=== PATIENT | female | born 1955 | race Two or more races ===

== ENCOUNTER 2022-05-03 08:36 | Outpatient (REF) | payer MEDICARE, MEDICAID, SELFPAY ==
[2022-05-03 08:58] LABS: MANUAL DIFF FLAG NO
[2022-05-03 09:07] LABS: Basophils Absolute Auto 0.1 X10*3/uL (0.0-0.2); Basophils Percent Auto 0.7 % (0-2); Eosinophils Absolute Auto 0.2 X10*3/uL (0.0-0.4); Eosinophils Percent Auto 1.6 % (0-4); Hemoglobin 14.8 g/dl (12.0-16.0); Imm Gran Abs Auto 0.03 X10*3/uL (0.00-0.03); Imm Gran Pct Auto 0.3 % (0.0-0.4); Lymphocytes Absolute Auto 4.7 X10*3/uL (1.2-4.9); Lymphocytes Percent Auto 51.5 % (20-40); Mean Corpuscular HGB Conc 33.6 g/dl (31.0-35.0); Mean Corpuscular Hemoglobin 28.8 pg (27.0-33.0); Mean Corpuscular Volume 85.8 fL (80.0-98.0); Mean Platelet Volume 10.7 fL (9.4-12.3); Monocytes Absolute Auto 0.6 X10*3/uL (0.1-1.2); Monocytes Percent Auto 6.9 % (2-11); Neutrophils Absolute Auto 3.6 x10*3/uL (2.0-8.3); Platelet Count 308 X10*3/uL (160-400); Red Blood Count 5.13 X10*6/uL (4.20-5.50); Red Cell Distribution Width 13.8 % (11.0-16.0); White Blood Count 9.2 X10*3/uL (4.8-10.8)
[2022-05-03 09:18] LABS: Estimated Average Glucose 131 mg/dL; Hemoglobin A1c % 6.2 %
[2022-05-03 09:35] LABS: Alanine Aminotransferase 27 U/L (0-31); Albumin Level 4.3 g/dL (3.5-5.0); Alkaline Phosphatase 84 U/L (39-117); Anion Gap 16 (12-20); Aspartate Amino Transferase 18 U/L (5-31); Bilirubin Total 0.4 mg/dL (0.0-1.0); Blood Urea Nitrogen 26 mg/dL (9-16); Calcium 9.3 mg/dL (8.4-10.2); Carbon Dioxide 26 mmol/L (22-29); Chloride 102 mmol/L (96-108); Cholesterol 229 mg/dL; Estimated Glomerular Filt Rate > 60; Glucose Random 127 mg/dL (60-115); HDL Cholesterol 64 mg/dL; LDL Cholesterol Calculated 143 mg/dl; Potassium 3.3 mmol/L (3.3-5.1); Sodium 141 mmol/L (135-145); Total Protein 8.1 g/dL (6.5-8.0); Triglycerides 112 mg/dL
[2022-05-03 09:49] LABS: Appearance Urine Clear; Color Urine Dark Yellow; Glucose Urine UA Negative (Negative); Leukocyte Esterase Urine Negative (Negative); Nitrite Urine Negative (Negative); PH 5.5 (5.0-9.0); Specific Gravity - Urine 1.025 (1.005-1.025); Urine Blood Negative (Negative); Urine Ketones Trace mg/dL (Negative); Urine Protein Negative (Neg-Trace)
[2022-05-03 09:58] LABS: Thyroid Stimulating Hormone 5.35 uIU/mL (0.32-4.0)
[2022-05-03 10:08] LABS: Vitamin B12 381 pg/mL (200-900)
[2022-05-03 10:49] LABS: Creatinine Urine 265.77 mg/dL; Microalbum/Creatinine Ratio Ur 5.6 ug/mg cr
== END 2022-05-03 08:37 | disposition home or self-care (01) ==
LOC: HO.LAB 08:36
PROVIDERS: Visit Provider Physician Assistant Medical
DX: D51.9 Vitamin B12 deficiency anemia, unspecified (principal); I10 Essential (primary) hypertension; M17.0 Bilateral primary osteoarthritis of knee; M51.36 Other intervertebral disc degeneration, lumbar region; M54.17 Radiculopathy, lumbosacral region; M54.50 Low back pain, unspecified; R10.84 Generalized abdominal pain; R73.01 Impaired fasting glucose
CPT/HCPCS: 36415; 80053; 80061; 81003; 82043; 82607; 83036; 84443; 85025

== ENCOUNTER 2022-05-09 08:20 | Outpatient (REF) | payer MEDICARE, MEDICAID, SELFPAY ==
--- NOTE | ~2022-05-09 | CT_ITS ---
EXAMINATION: CT HEAD WITHOUT CONTRAST CLINICAL INFORMATION: Occipital neuralgia, headache COMPARISON: None TECHNIQUE: Contiguous axial imaging was performed from the skull base to vertex without intravenous administration of contrast. This CT examination was performed using dose optimization techniques as appropriate, variously including the following: *Automated exposure control *Adjustment of mA and/or kV according to patient size (this includes techniques or standardized protocols for targeted exams where dose is matched to indication/reason for exam; i.e. extremities or head) *Use of iterative reconstruction technique DLP: 660 mGy-cm FINDINGS: No intracranial hemorrhage is identified. No abnormal extra-axial fluid collection. No significant mass effect or midline structure shift is seen. The yanez-white matter interface is maintained. The bony structures unremarkable without evidence of sinusitis or mastoiditis. CT/CT head/brain wo IV con IMPRESSION: No acute intracranial pathology.
== END 2022-05-09 08:21 | disposition home or self-care (01) ==
LOC: HO.CT 08:20
PROVIDERS: Visit Provider Physician Assistant Medical
DX: H81.21 Vestibular neuronitis, right ear (principal); M54.81 Occipital neuralgia; R51.0 Headache with orthostatic component, not elsewhere classified; R11.10 Vomiting, unspecified
CPT/HCPCS: 70450

== ENCOUNTER 2022-10-18 08:24 | Outpatient (REF) | payer MEDICARE, SELFPAY ==
[2022-10-18 08:41] LABS: MANUAL DIFF FLAG NO
[2022-10-18 09:02] LABS: Basophils Percent Auto 0.8 % (0-2); Eosinophils Absolute Auto 0.1 X10*3/uL (0.0-0.4); Eosinophils Percent Auto 3.3 % (0-4); Hematocrit 39.2 % (37.0-47.0); Hemoglobin 12.9 g/dl (12.0-16.0); Imm Gran Abs Auto 0.01 X10*3/uL (0.00-0.03); Imm Gran Pct Auto 0.3 % (0.0-0.4); Lymphocytes Absolute Auto 1.5 X10*3/uL (1.2-4.9); Lymphocytes Percent Auto 37.8 % (20-40); Mean Corpuscular HGB Conc 32.9 g/dl (31.0-35.0); Mean Corpuscular Hemoglobin 28.3 pg (27.0-33.0); Mean Platelet Volume 11.3 fL (9.4-12.3); Monocytes Absolute Auto 0.3 X10*3/uL (0.1-1.2); Monocytes Percent Auto 7.1 % (2-11); Neutrophils Percent Auto 50.7 % (45-73); Platelet Count 250 X10*3/uL (160-400); Red Blood Count 4.56 X10*6/uL (4.20-5.50); Red Cell Distribution Width 14.2 % (11.0-16.0); White Blood Count 3.9 X10*3/uL (4.8-10.8)
[2022-10-18 09:11] LABS: Appearance Urine Clear; Color Urine Yellow; Glucose Urine UA Negative (Negative); Leukocyte Esterase Urine Trace (Negative); Nitrite Urine Negative (Negative); PH 6.5 (5.0-9.0); Specific Gravity - Urine 1.025 (1.005-1.025); UMIC TRIGGER UA YES; Urine Blood Negative (Negative); Urine Ketones Negative (Negative); Urine Protein Negative (Neg-Trace)
[2022-10-18 09:16] LABS: Bacteria Urine Trace (None Seen); Hyaline Casts Urine 0-2 /LPF (0-2); RBC Urine 0-2 /HPF (0-2); Squamous Epithelial Cell Urine 0-2 /HPF (0-2); WBC Urine 0-5 /HPF (0-5)
[2022-10-18 09:24] LABS: Estimated Average Glucose 131 mg/dL; Hemoglobin A1c % 6.2 %
[2022-10-18 10:00] LABS: Creatinine Urine 214.21 mg/dL
[2022-10-18 10:05] LABS: Alanine Aminotransferase 19 U/L (0-31); Albumin Level 4.1 g/dL (3.5-5.0); Alkaline Phosphatase 85 U/L (39-117); Anion Gap 11 (12-20); Aspartate Amino Transferase 21 U/L (5-31); Bilirubin Total 0.7 mg/dL (0.0-1.0); Blood Urea Nitrogen 16 mg/dL (9-16); Calcium 9.1 mg/dL (8.4-10.2); Carbon Dioxide 26 mmol/L (22-29); Chloride 109 mmol/L (96-108); Cholesterol 213 mg/dL; Estimated Glomerular Filt Rate > 60; Glucose Fasting 112 mg/dL (60-99); HDL Cholesterol 51 mg/dL; LDL Cholesterol Calculated 142 mg/dl; Sodium 142 mmol/L (135-145); Total Protein 7.3 g/dL (6.5-8.0); Triglycerides 100 mg/dL
[2022-10-18 10:22] LABS: Thyroid Stimulating Hormone 3.39 uIU/mL (0.32-4.0); Vitamin D 25-OH Total 26.8 ng/mL (>30)
== END 2022-10-18 08:25 | disposition home or self-care (01) ==
LOC: HO.LAB 08:24
PROVIDERS: PCP Internal Medicine; Visit Provider Internal Medicine
DX: Z00.00 Encounter for general adult medical examination without abnormal findings (principal); R73.03 Prediabetes; E55.9 Vitamin D deficiency, unspecified
CPT/HCPCS: 36415; 80053; 80061; 81001; 81003; 82043; 82306; 83036; 84443; 85025

== ENCOUNTER 2022-12-04 10:26 | Outpatient (REF) | payer MEDICARE, SELFPAY ==
[2022-12-04 11:57] LABS: Estimated Average Glucose 131 mg/dL; Hemoglobin A1c % 6.2 %
[2022-12-04 12:15] LABS: Alanine Aminotransferase 18 U/L (0-31); Albumin Level 4.2 g/dL (3.5-5.0); Alkaline Phosphatase 90 U/L (39-117); Anion Gap 12 (12-20); Aspartate Amino Transferase 21 U/L (5-31); Bilirubin Total 0.6 mg/dL (0.0-1.0); Blood Urea Nitrogen 22 mg/dL (9-16); Calcium 9.2 mg/dL (8.4-10.2); Carbon Dioxide 28 mmol/L (22-29); Chloride 108 mmol/L (96-108); Cholesterol 215 mg/dL; Estimated Glomerular Filt Rate > 60; Glucose Fasting 115 mg/dL (60-99); HDL Cholesterol 59 mg/dL; LDL Cholesterol Calculated 142 mg/dl; Potassium 4.5 mmol/L (3.3-5.1); Sodium 143 mmol/L (135-145); Total Protein 7.5 g/dL (6.5-8.0); Triglycerides 71 mg/dL
== END 2022-12-04 10:27 | disposition home or self-care (01) ==
LOC: HO.LAB 10:26
PROVIDERS: PCP Internal Medicine; Visit Provider Internal Medicine
DX: E78.00 Pure hypercholesterolemia, unspecified (principal); E55.9 Vitamin D deficiency, unspecified; I10 Essential (primary) hypertension; R73.03 Prediabetes
CPT/HCPCS: 36415; 80053; 80061; 83036

== ENCOUNTER 2022-12-14 08:51 | Outpatient (REF) | payer MEDICARE, SELFPAY ==
--- NOTE | ~2022-12-14 | MM_ITS ---
EXAMINATION: BONE DENSITOMETRY CLINICAL INDICATION: Asymptomatic menopausal state. COMPARISON: This is the patient's baseline examination. TECHNIQUE: Using a [employer] DXA System (software version: 13.1) manufactured by [employer], dual-energy x-ray absorptiometry was performed of the lumbar spine and left hip. The images are of good technical quality. Summary results are attached. FINDINGS: AP SPINE L1-L4: BMD 1.389 g/cm2, Z-score 2.7, T-score 1.7, normal. LEFT FEMUR, NECK: BMD 0.932 g/cm2, Z-score 0.3, T-score -0.8, normal. LEFT FEMUR, TOTAL: BMD 1.030 g/cm2, Z-score 1.0, T-score 0.2, normal. IDENTIFIED RISK FACTORS: Height loss, history of fracture (adult). Early menopause, secondary osteoporosis, thiazide. HISTORY OF FRACTURE: Other. MEDICATIONS: Vitamin D. MM/XR DEXA axial skeleton IMPRESSION: 1. DIAGNOSIS: Normal bone density based on the lowest T-score value of -0.8 in the femoral neck applying World Health Organization criteria. 2. 10-YEAR FRACTURE RISK PREDICTION, FRAX: According to the guidelines, FRAX calculation should only be performed on patients in the osteopenia bone density category. Therefore, FRAX was not performed on this patient. 3. Treatment Recommendations: NOF guidelines recommend consideration for treatment in postmenopausal women and men age 50 and older presenting with the following: -A hip or vertebral (clinical or morphometric) fracture. -T-score less than or equal to -2.5 at the femoral neck or spine after appropriate evaluation to exclude secondary causes. -Low bone mass at the hip or spine and a 10-year fracture probability by FRAX of greater than or equal to 3% for hip fracture or greater than or equal to 20% for major osteoporotic fracture based on the [place] adapted WHO algorithm. 4. Other Recommendations: All treatment decisions require clinical judgment and consideration of individual patient factors, including patient preferences, comorbidities, previous drug use, risk factors not captured in the FRAX model (e.g. frailty, falls, vitamin D deficiency, increased bone turnover, interval significant decline in bone density) and possible under or overestimation of fracture risk by FRAX. FUTURE SCAN RECOMMENDATION: People with diagnosed cases of osteoporosis or at high risk for fracture should have regular bone mineral density tests. For patients eligible for Medicare, routine testing is allowed once every 2 years. The testing frequency can be increased to one year for patients who have rapidly progressing disease, those who are receiving or discontinuing medical therapy to restore bone mass, or have additional risk factors.
--- NOTE | ~2022-12-14 | MM_ITS ---
EXAMINATION: MM SCREENING DIGITAL BREAST TOMOSYNTHESIS, BILATERAL CLINICAL INFORMATION: Screening. Asymptomatic. The lifetime risk of breast cancer based on the Tyrer-Cuzick Model is 6.0%. COMPARISON: Mammography: August 30, 2012 and studies dating back to October 03, 2007 TECHNIQUE: Digital breast tomosynthesis is performed in both the craniocaudal and mediolateral oblique views along with computer-aided detection (CAD). Synthesized 2D images are generated from the tomosynthesis. FINDINGS: There are scattered areas of fibroglandular density (ACR BI-RADS breast composition Category b). There are no significant masses, abnormal calcifications, or other abnormalities. MM/MM tomosynthesis screening BI IMPRESSION: No significant changes from prior exam. ASSESSMENT: BI-RADS 1: Negative RECOMMENDATION: Routine annual mammography screening. This patient's information was entered into a reminder system with a target due date for their next mammogram.
== END 2022-12-14 08:52 | disposition home or self-care (01) ==
LOC: HO.MAMMO 08:51
PROVIDERS: PCP Internal Medicine; Visit Provider Internal Medicine
DX: Z12.31 Encounter for screening mammogram for malignant neoplasm of breast (principal); Z13.820 Encounter for screening for osteoporosis; Z78.0 Asymptomatic menopausal state
CPT/HCPCS: 77063; 77067; 77080

== ENCOUNTER 2023-01-01 13:58 | Outpatient (REF) | payer MEDICARE, SELFPAY ==
[2023-01-01 15:38] LABS: C Reactive Protein 0.16 mg/dL (< or = 0.50)
[2023-01-01 15:55] LABS: Free T4 (Free Thyroxine) 0.82 ng/dL (0.71-1.85); Thyroid Stimulating Hormone 2.09 uIU/mL (0.32-4.0)
== END 2023-01-01 13:59 | disposition home or self-care (01) ==
LOC: HO.LAB 13:58
PROVIDERS: PCP Internal Medicine; Visit Provider Internal Medicine
DX: R94.6 Abnormal results of thyroid function studies (principal)
CPT/HCPCS: 36415; 84439; 84443; 86140

== ENCOUNTER 2023-06-18 08:52 | Outpatient (REF) | payer MEDICARE, SELFPAY ==
[2023-06-18 09:23] LABS: MANUAL DIFF FLAG NO
[2023-06-18 09:39] LABS: Basophils Percent Auto 0.9 % (0-2); Eosinophils Absolute Auto 0.1 X10*3/uL (0.0-0.4); Eosinophils Percent Auto 2.2 % (0-4); Hematocrit 39.5 % (37.0-47.0); Hemoglobin 12.7 g/dl (12.0-16.0); Imm Gran Abs Auto 0.01 X10*3/uL (0.00-0.03); Imm Gran Pct Auto 0.2 % (0.0-0.4); Lymphocytes Absolute Auto 1.9 X10*3/uL (1.2-4.9); Lymphocytes Percent Auto 41.8 % (20-40); Mean Corpuscular HGB Conc 32.2 g/dl (31.0-35.0); Mean Corpuscular Hemoglobin 27.1 pg (27.0-33.0); Mean Corpuscular Volume 84.2 fL (80.0-98.0); Mean Platelet Volume 11.6 fL (9.4-12.3); Monocytes Absolute Auto 0.3 X10*3/uL (0.1-1.2); Monocytes Percent Auto 6.3 % (2-11); Neutrophils Absolute Auto 2.2 x10*3/uL (2.0-8.3); Neutrophils Percent Auto 48.6 % (45-73); Platelet Count 248 X10*3/uL (160-400); Red Blood Count 4.69 X10*6/uL (4.20-5.50); Red Cell Distribution Width 15.3 % (11.0-16.0); White Blood Count 4.6 X10*3/uL (4.8-10.8)
[2023-06-18 09:51] LABS: Estimated Average Glucose 126 mg/dL
[2023-06-18 10:20] LABS: Alanine Aminotransferase 20 U/L (0-31); Albumin Level 4.2 g/dL (3.5-5.0); Alkaline Phosphatase 89 U/L (39-117); Anion Gap 12 (12-20); Aspartate Amino Transferase 21 U/L (5-31); Bilirubin Total 0.4 mg/dL (0.0-1.0); Blood Urea Nitrogen 22 mg/dL (9-16); Calcium 9.4 mg/dL (8.4-10.2); Carbon Dioxide 26 mmol/L (22-29); Chloride 109 mmol/L (96-108); Cholesterol 227 mg/dL (<200); Estimated Glomerular Filt Rate > 60; Glucose Fasting 100 mg/dL (60-99); HDL Cholesterol 61 mg/dL (>40); LDL Cholesterol Calculated 146 mg/dL (<100); Potassium 3.9 mmol/L (3.3-5.1); Sodium 143 mmol/L (135-145); Total Protein 8.2 g/dL (6.5-8.0); Triglycerides 104 mg/dL (<150)
[2023-06-18 11:29] LABS: Creatinine Urine 144.73 mg/dL; Microalbum/Creatinine Ratio Ur 4.1 ug/mg cr (<30)
== END 2023-06-18 08:53 | disposition home or self-care (01) ==
LOC: HO.LAB 08:52
PROVIDERS: PCP Internal Medicine; Visit Provider Internal Medicine
DX: I10 Essential (primary) hypertension (principal); E78.00 Pure hypercholesterolemia, unspecified; R73.03 Prediabetes
CPT/HCPCS: 36415; 80053; 80061; 82043; 82570; 83036; 85025

== ENCOUNTER 2023-07-10 12:50 | Outpatient (REF) | payer MEDICARE, SELFPAY ==
--- NOTE | ~2023-07-10 | XR_ITS ---
EXAMINATION: XR LEFT KNEE XR RIGHT KNEE CLINICAL INFORMATION: Bilateral knee pain. COMPARISON: None TECHNIQUE: Left knee, 3 views Right knee, 3 views FINDINGS: Left knee: Small marginal osteophytes and subchondral cystic changes of the patellofemoral joint. There is mild narrowing of lateral patellofemoral joint space. Also, mild marginal osteophyte formation is noted at tibiofemoral compartments. No fracture, subluxation or joint effusion. Right knee: There is tricompartmental osteophyte formation and overall mild, nonuniform narrowing of joint spaces. No fracture or intra-articular osteochondral body. Small joint effusion is present. On the AP view, the observation of mild lateral tibial subluxation raises suspicion for laxity at the knee joint. XR/XR knee LT 3V IMPRESSION: * Left knee tricompartmental osteoarthritis. The joint degeneration is mild at tibiofemoral compartments and [id number] at the patellofemoral compartment. * Right knee tricompartmental osteoarthritis is [id number] in degree and a small joint effusion is present.
--- NOTE | ~2023-07-10 | XR_ITS ---
EXAMINATION: XR FOOT, LEFT CLINICAL INFORMATION: Pain COMPARISON: None available. TECHNIQUE: 3 views of the left foot obtained without weightbearing. FINDINGS: Bones have normal alignment throughout the foot. Joint spaces are normal. No fractures, erosions or periostitis. No radiopaque foreign body. There are small calcaneal enthesophytes at sites of attachment of Achilles tendon and plantar aponeurosis. XR/XR foot LT min 3V IMPRESSION: * There are small enthesophytes of the calcaneus. * No acute osseous injury in the left foot.
--- NOTE | ~2023-07-10 | XR_ITS ---
EXAMINATION: XR LEFT KNEE XR RIGHT KNEE CLINICAL INFORMATION: Bilateral knee pain. COMPARISON: None TECHNIQUE: Left knee, 3 views Right knee, 3 views FINDINGS: Left knee: Small marginal osteophytes and subchondral cystic changes of the patellofemoral joint. There is mild narrowing of lateral patellofemoral joint space. Also, mild marginal osteophyte formation is noted at tibiofemoral compartments. No fracture, subluxation or joint effusion. Right knee: There is tricompartmental osteophyte formation and overall mild, nonuniform narrowing of joint spaces. No fracture or intra-articular osteochondral body. Small joint effusion is present. On the AP view, the observation of mild lateral tibial subluxation raises suspicion for laxity at the knee joint. XR/XR knee RT 3V IMPRESSION: * Left knee tricompartmental osteoarthritis. The joint degeneration is mild at tibiofemoral compartments and [id number] at the patellofemoral compartment. * Right knee tricompartmental osteoarthritis is [id number] in degree and a small joint effusion is present.
== END 2023-07-10 12:51 | disposition home or self-care (01) ==
LOC: HO.XRAY 12:50
PROVIDERS: PCP Internal Medicine; Visit Provider Internal Medicine
DX: M25.561 Pain in right knee (principal); M25.562 Pain in left knee; M79.672 Pain in left foot
CPT/HCPCS: 73562; 73630

== ENCOUNTER 2023-09-25 12:30 | Outpatient (AMB) | payer MEDICARE, SELFPAY ==
--- NOTE | 2023-09-25 12:41 | A.OFFVIS_ITS ---
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 Seen with her PCP who referred to Dr. Hawkins. Patient states she noticed cyst in May 2023, since then it has gone away. States her thumb hurt when with every moment. Denies locking, numbness, tingling or recent injury. 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 Her appointment was initially made to discuss a left thumb mass, which developed in 05/2023, but this has resolved at this time. She complains of pain with any movement or use of her thumb. She says her pain began once this mass disappeared . She says her pain is mostly on the back of her thumb. She says her pain worsens with prolonged gripping or holding objects, such as a phone. She denies any locking, catching, numbness, or tingling. She denies any falls or known injury. 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 Review of Systems Const All systems reviewed & are unremarkable except as noted in HPI and below Physical Exam Vital Signs: BMI result Body Mass Index 33.5 Const General: cooperative, healthy appearing and no acute distress Orientation/consciousness: patient oriented x3 HEENT Head: Yes normocephalic and Yes atraumatic Eyes EOM: EOMs intact bilaterally Resp Effort & Inspection: normal respiratory effort and able to speak in complete sentences Cardio Jugular venous distension: no JVD Skin General skin exam: turgor normal Rashes: no rashes Neuro General: patient oriented x3 Extrem Other: Evaluation of Left Upper Extremity: The patient is alert, oriented, and in no acute distress Neuro: Median, Ulnar, Radial nerves motor and sensory intact and sensation is normal to the tips of all digits Vascular: Cap refill brisk ROM: She can make a fist and extend all her digits No locking or catching Skin: No lacerations or abrasions. General: No Ecchymosis. No Erythema or evidence of infection. She demonstrates most of her pain to be over the dorsal aspect of the left 1st metacarpal. No pain with resisted left thumb extension, and the EPL and EPB tendons are palpable and nontender. No tenderness about the basal joint of the thumb or MCP joint of the thumb. The MCP joint collateral ligaments are intact and stable. Good active flexion and extension of the thumb with no locking or catching No tenderness over the A1 ling. No palpable cyst over the volar aspect of the thumb, though she reports a history of having a cyst on 2 different occasions over the volar distal aspect of the proximal phalanx of the thumb, that resolved on their own. No tenderness over the 1st dorsal compartment Negative Addi test Psych Appearance: grossly normal Affect: normal affect Attitude: cooperative Assessment & Plan Assessment & Plan (1) Mass of skin of left thumb: Code(s): R22.32 - Localized swelling, mass and lump, left upper limb (2) Pain of left thumb: Code(s): M79.645 - Pain in left finger(s) Plan Assessment & Plan: 1. Left thumb pain, intermittent Worse with prolonged holding of her phone or holding objects. Dorsum of 1st metacarpal Possible sprain/strain Onset: 06/2023 I educated her about this condition i discussed non-operative treatment options I recommend bracing & activity modification I discussed activity modification, she should limit or avoid any heavy or repetitive pinching, gripping, or other motions She was fitted for a left comfort cool brace to be worn with daily activity, this should be removed when at rest & at night She should work on gentle ROM exercises at home, out of her brace, to maintain her motion She can follow up prn 2. 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 No mass seen today If her symptoms return she can follow up to discuss treatment. Scribed for Guerline Hawkins MD by Trevor Cates, medical staff specialist, on 09/25/23 at 1:05 PM, EST. Coding Level of Care Code New Pt Level 3 (75291) Diagnoses Mass of skin of left thumb R22.32 Pain of left thumb M79.645
[2023-09-25 12:55] VITALS: BMI 33.5
== END 2023-09-25 13:12 | disposition home or self-care (01) ==
PROVIDERS: PCP Internal Medicine; Visit Provider Orthopaedic Surgery
DX: M79.645 Pain in left finger(s) (principal)
CPT/HCPCS: 99203

== ENCOUNTER → 2023-09-25 12:30 | Outpatient (BNVA) | payer MEDICARE, SELFPAY | PROVIDERS: PCP Internal Medicine; Visit Provider Orthopaedic Surgery | DX: R22.32 Localized swelling, mass and lump, left upper limb (principal); M79.645 Pain in left finger(s) | CPT/HCPCS: 99202 ==

== ENCOUNTER 2023-12-17 15:07 | Outpatient (REF) | payer MEDICARE, SELFPAY ==
--- NOTE | ~2023-12-17 | US_ITS ---
EXAMINATION: US VENOUS ULTRASOUND WITH DOPPLER LOWER EXTREMITY, LEFT CLINICAL INFORMATION: Left lower extremity pain COMPARISON: None available. TECHNIQUE: Ultrasound of the deep veins is performed from the hip to the calf with compression sonography and color and pulse Doppler assessment. Spectral analysis with color-flow imaging is performed. FINDINGS: There is normal venous compression and respiratory variation and augmented flow. The visualized common femoral vein, superficial femoral vein, profunda femoral vein, popliteal vein, and the trifurcation region shows no evidence of deep venous thrombosis. There is no significant popliteal fossa cyst. If the patient's symptoms persist, followup ultrasound in 5 days 7 days might be of value to exclude proximal propagation from a non-visualized calf vein. US/US venous duplex LE LT IMPRESSION: No DVT demonstrated in the left lower extremity.
== END 2023-12-17 15:08 | disposition home or self-care (01) ==
LOC: HO.US 15:07
PROVIDERS: PCP Internal Medicine; Visit Provider Internal Medicine
DX: M79.662 Pain in left lower leg (principal)
CPT/HCPCS: 93971

== ENCOUNTER 2023-12-24 09:49 | Outpatient (REF) | payer MEDICARE, SELFPAY ==
--- NOTE | ~2023-12-24 | MM_ITS ---
EXAMINATION: MM SCREENING DIGITAL BREAST TOMOSYNTHESIS, BILATERAL CLINICAL INFORMATION: Screening. Asymptomatic. COMPARISON: Mammography: This study is compared with prior exams dating back to 2022. TECHNIQUE: Digital breast tomosynthesis is performed in both the craniocaudal and mediolateral oblique views along with computer-aided detection (CAD). Synthesized 2D images are generated from the tomosynthesis. FINDINGS: There are scattered areas of fibroglandular density (ACR BI-RADS breast composition Category b). There are no significant masses, abnormal calcifications, or other abnormalities. MM/MM tomosynthesis screening BI IMPRESSION: No mammographic evidence of malignancy. ASSESSMENT: BI-RADS BI-RADS 1 - Negative RECOMMENDATION: Routine annual mammography screening. 1 year F/U This examination should not preclude the clinical evaluation of a suspicious palpable abnormality. This patient's information was entered into a reminder system with a target due date for their next mammogram.
== END 2023-12-24 09:50 | disposition home or self-care (01) ==
LOC: HO.MAMMO 09:49
PROVIDERS: PCP Internal Medicine; Visit Provider Internal Medicine
DX: Z12.31 Encounter for screening mammogram for malignant neoplasm of breast (principal)
CPT/HCPCS: 77063; 77067

== ENCOUNTER → 2023-12-24 10:00 | Outpatient (BNV) | payer MEDICARE, SELFPAY | PROVIDERS: PCP Internal Medicine; Visit Provider Radiology Diagnostic Radiology | DX: Z12.31 Encounter for screening mammogram for malignant neoplasm of breast (principal) | CPT/HCPCS: 77063; 77067 ==

== ENCOUNTER 2024-01-09 08:46 | Emergency (ER) | payer MEDICARE, SELFPAY ==
[2024-01-09 08:56] VITALS: BP 149/81; PULSE 62; RESP 16; TEMP 36.3; O2SAT 98; BMI 32.9
== END 2024-01-09 11:37 | disposition left against medical advice (07) ==
PROVIDERS: Emergency Provider Emergency Medicine; PCP Internal Medicine
DX: Z53.21 Procedure and treatment not carried out due to patient leaving prior to being seen by health care provider (principal); M54.50 Low back pain, unspecified; M25.559 Pain in unspecified hip
CPT/HCPCS: 99281

== ENCOUNTER 2024-01-09 12:06 | Outpatient (REF) | payer OTHER, SELFPAY ==
--- NOTE | ~2024-01-09 | XR_ITS ---
EXAMINATION: XR PELVIS CLINICAL INFORMATION: Low back pain. No trauma COMPARISON: None available. TECHNIQUE: AP view of the pelvis. FINDINGS: No fracture. Hip joint spaces are maintained. Alignment is anatomic. Sacroiliac joints and pubic symphysis are normal. No abnormal soft tissue calcifications. Spondylosis of the partially visualized lumbar sacral spine. See dedicated lumbar spine report for further clarification. XR/XR pelvis 1-2V IMPRESSION: 1. Normal pelvis. 2. Spondylosis of the partially visualized lumbar sacral spine. See dedicated lumbar spine report for further clarification.
--- NOTE | ~2024-01-09 | XR_ITS ---
EXAMINATION: XR LUMBOSACRAL SPINE CLINICAL INFORMATION: Pain Patient states pain 2 weeks, no trauma COMPARISON: None available. TECHNIQUE: Three standing views of the lumbosacral spine. FINDINGS: There are 5 nonrib-bearing lumbar-type vertebral bodies. The height of vertebral bodies is well-maintained. There is marked disc space narrowing with discogenic sclerosis at L2-L3 and L4-L5 with marginal osteophyte formation. There is also disc space narrowing at L3-L4 L5-S1 with marginal osteophyte formation. There is multilevel degenerative facet joint disease, marked at L5-S1. There is mild retrolisthesis of L3 respect to L4. XR/XR lumbar spine 2-3V IMPRESSION: 1. Multilevel degenerative disc disease and degenerative facet joint disease. 2. Mild retrolisthesis of L3 respect to L4.
[2024-01-09 13:05] LABS: MANUAL DIFF FLAG NO
[2024-01-09 13:37] LABS: Basophils Percent Auto 0.7 % (0-2); Eosinophils Absolute Auto 0.2 X10*3/uL (0.0-0.4); Eosinophils Percent Auto 3.1 % (0-4); Hematocrit 39.3 % (37.0-47.0); Hemoglobin 12.9 g/dl (12.0-16.0); Imm Gran Abs Auto 0.02 X10*3/uL (0.00-0.03); Imm Gran Pct Auto 0.4 % (0.0-0.4); Lymphocytes Absolute Auto 2.3 X10*3/uL (1.2-4.9); Lymphocytes Percent Auto 41.4 % (20-40); Mean Corpuscular HGB Conc 32.8 g/dl (31.0-35.0); Mean Corpuscular Hemoglobin 27.7 pg (27.0-33.0); Mean Corpuscular Volume 84.3 fL (80.0-98.0); Mean Platelet Volume 10.8 fL (9.4-12.3); Monocytes Absolute Auto 0.3 X10*3/uL (0.1-1.2); Monocytes Percent Auto 6.2 % (2-11); Neutrophils Absolute Auto 2.7 x10*3/uL (2.0-8.3); Neutrophils Percent Auto 48.2 % (45-73); Platelet Count 269 X10*3/uL (160-400); Red Blood Count 4.66 X10*6/uL (4.20-5.50); Red Cell Distribution Width 15.2 % (11.0-16.0); White Blood Count 5.5 X10*3/uL (4.8-10.8)
[2024-01-09 13:38] LABS: Appearance Urine Clear; Color Urine Yellow; Glucose Urine UA Negative (Negative); Leukocyte Esterase Urine Negative (Negative); Nitrite Urine Negative (Negative); Specific Gravity - Urine 1.015 (1.005-1.025); Urine Blood Negative (Negative); Urine Ketones Negative (Negative); Urine Protein Negative (Neg-Trace)
[2024-01-09 14:15] LABS: Alanine Aminotransferase 17 U/L (0-31); Albumin Level 4.4 g/dL (3.5-5.0); Alkaline Phosphatase 90 U/L (39-117); Anion Gap 14 (12-20); Aspartate Amino Transferase 22 U/L (5-31); Bilirubin Total 0.5 mg/dL (0.0-1.0); Blood Urea Nitrogen 20 mg/dL (9-16); C Reactive Protein 0.38 mg/dL (< or = 0.50); Calcium 9.7 mg/dL (8.4-10.2); Carbon Dioxide 26 mmol/L (22-29); Chloride 104 mmol/L (96-108); Estimated Glomerular Filt Rate > 60; Glucose Random 96 mg/dL (60-115); Potassium 3.8 mmol/L (3.3-5.1); Sodium 140 mmol/L (135-145); Total Protein 8.6 g/dL (6.5-8.0)
== END 2024-01-09 12:07 | disposition home or self-care (01) ==
LOC: HO.XRAY 12:06
PROVIDERS: PCP Internal Medicine; Visit Provider Internal Medicine
DX: M54.9 Dorsalgia, unspecified (principal); I10 Essential (primary) hypertension
CPT/HCPCS: 36415; 72100; 72170; 80053; 81003; 82550; 85025; 86140

== ENCOUNTER 2024-02-12 10:52 | Emergency (ER) | payer OTHER, SELFPAY ==
--- NOTE | ~2024-02-12 | XR_ITS ---
EXAMINATION: XR CHEST CLINICAL INFORMATION: Resolved chest pain COMPARISON: None available. TECHNIQUE: Frontal view of the chest was obtained. FINDINGS: Slight elevation right hemidiaphragm. No pneumothorax. Trachea is midline. Cardiac mediastinal silhouette is normal enlarged. No large pleural effusion. Osseous structures are intact. Soft tissues are unremarkable. XR/XR chest 1V IMPRESSION: No acute cardiopulmonary process.
--- NOTE | 2024-02-12 10:55 | ECG_ITS ---
Test Reason : ABNORMAL EKG Blood Pressure : / mmHG Vent. Rate : 063 BPM Atrial Rate : 063 BPM P-R Int : 206 ms QRS Dur : 108 ms QT Int : 404 ms P-R-T Axes : 058 -70 114 degrees QTc Int : 413 ms Normal sinus rhythm Left anterior fascicular block Minimal voltage criteria for LVH, may be normal variant ( [place] product ) ST & T wave abnormality, consider lateral ischemia Abnormal ECG No previous ECGs available Referred By: Generic ED Physician Electronically Signed By:Chay Arora
[2024-02-12 11:06] VITALS: BP 155/69; PULSE 67; RESP 18; TEMP 36.3; O2SAT 97; BMI 33.4
--- NOTE | 2024-02-12 11:10 | ED_ITS ---
HPI - Chest Pain General Chief Complaint: Chest Pain Stated Complaint: abd ekg SOB sent in by pcp Time Seen by Provider: 02/12/24 13:24 Source: patient Mode of arrival: ambulatory Limitations: no limitations History of Present Illness ED Provider: Dr. Jason Rucker HPI narrative: 68-year-old female with a history of hypertension, migraines, anemia, arthritis who presents emergency department for evaluation of epigastric pain and abnormal EKG. The patient states that she had a routine appointment to follow-up with her PCP, Dr. Yu. The patient states that over the last 2 weeks she has had about 4 episodes of epigastric pain. She states that they come on at night while she is reclining on her sofa. She states that they usually started around 22:00 hours and last till 03:00 hours. She points to her epigastric area when asked to localize the pain. She describes it as a squeezing sensation that she does feel between her shoulder blades. The pain does not radiate to her shoulders, arms, neck. She states that she does have associated nausea with the pain but no other symptoms. She denied chest pain, lightheadedness, dizziness, diaphoresis. The patient states that the pain does not come on with exertion. She states that prior to seeing Dr. Yu, the elevator was taking too long and she did not want to be late so she walked up the stairs briskly and states that when she got to the top of stairs she did not feel winded, lightheaded, dizzy or have any chest pain. Her last episode of pain was Sunday night into Sunday morning (02/08/2024). Related Data Home Medications ?Medication ?Instructions ?Recorded ?Confirmed amlodipine 2.5 mg tablet 2.5 mg PO DAILY 09/25/23 cyanocobalamin (vitamin B-12) 1,000 mcg IM 09/25/23 1,000 mcg/mL injection solution ergocalciferol (vitamin D2) 1,250 1,250 mcg PO QWEEK 09/25/23 mcg (50,000 unit) capsule (Vitamin D2) hydrochlorothiazide 25 mg tablet 25 mg PO DAILY 09/25/23 irbesartan 300 mg tablet 300 mg PO DAILY 09/25/23 loratadine 10 mg tablet 10 mg PO DAILY 09/25/23 Allergies Allergy/AdvReac Type Severity Reaction Status Date / Time aspirin AdvReac Severe bleeding Verified 02/12/24 11:09 in stomach Review of Systems 2 Review of Systems: Yes all other systems are reviewed and are negative [facility] Past Medical History [facility] Narrative: Social history: She denies tobacco, alcohol and drug use Social History Social History (Updated 09/25/23 @ 12:54 by RICARDO Villa) Advance Directives: No Advance Directives Information Provided: No Current occupational status: unemployed 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 Physical Exam 2 Vital Signs: Vital Signs: Last Vital Signs Temp 98.0 F 02/12/24 13:54 Pulse 63 02/12/24 13:54 Resp 16 02/12/24 13:54 BP 146/85 H 02/12/24 13:54 Pulse Ox 98 02/12/24 13:54 O2 Del Method Room Air 02/12/24 13:54 BMI result Body Mass Index 33.4 Initial vital signs revealed an elevated blood pressure of 155/69 otherwise unremarkable Exam: General: Awake, alert in no distress Head: Normocephalic, atraumatic EENT: PERRL, Lids normal, sclera normal, conjunctiva normal, nose normal , ears normal, throat without erythema or exudates Neck: Supple, no adenopathy Lung: breath sounds symmetric, no wheezing, rales or rhonchi Chest: symmetric movement, nontender Heart: regular rate and rhythm, normal S1, S2 no murmurs or rubs Abdomen: soft, mild epigastric tenderness, no right upper quadrant tenderness, negative Arvizu sign, normoactive bowel sounds, no distension Back: no vertebral tenderness, no CVAT Extremities: no deformities, moves all extremities symmetrically Neuro: Awake, alert, oriented, normal speech, cranial nerves intact, moves all extremities symmetrically Psych: Pleasant, cooperative Course Course Course Narrative: RME: Done by LEE Keys. Patient presented to the ED for abnormal EkG. patientn had midsternal chest pain that resolved. patient was seen at Dr. Yu this morning who stating her EKG was abnormal and sent her to the ED for evaluation. patient states presently no chest pain. labs EKG ordered. no access to Dr. Yu EKG to compare. Chest xray ordereed Medical Decision Making Medical Decision Making MDM Narrative: 68-year-old female with a history of hypertension, migraines, anemia, arthritis who presents emergency department for evaluation of epigastric pain and abnormal EKG. Patient states she has had 4 episodes of epigastric pain over the past 2 weeks. These symptoms come on while she is reclining on her sofa usually starting around 22:00 hours and lasts until 03:00 hours. She states she normally eats dinner around 18:00 hours to 20:00 hours. Pain does radiate to her back in his associated with nausea. She states she has not had this pain with exertion. The patient had a routine visit with her PCP Dr. Yu who did an EKG and noted changes from her PVC EKG and brought the patient to the emergency department for evaluation. Patient's last episode of this type of pain was on 02/08/2024. Initial vital signs revealed an elevated blood pressure. Abdominal exam revealed mild epigastric tenderness with no right upper quadrant tenderness and a negative Arvizu sign Differential diagnosis: ?Includes but is not limited to myocardial infarction, myocardial ischemia, gastritis, esophagitis, biliary colic, gallstones, anemia, electrolyte abnormalities Following evaluation was ordered: CBC, CMP, CK, lipase, BNP, troponin, PT/INR, PTT, chest x-ray, EKG Course: My independent interpretation patient's laboratory evaluation is as follows: CBC was normal. CMP revealed an elevated BUN of 21 with a normal creatinine of 0.75. Elevated glucose of 127. Troponin was below detectable limits. AST and ALT were elevated 91 and 216. Alk-phos was elevated 168. Bilirubin was normal at 0.4. These tests were normal on 01/09/2024. Patient's CK was slightly elevated 166. Twelve EKG did reveal inverted T-waves in 1, aVL, V1 and V 2 but no evidence of myocardial infarction or cardiac ischemia.. Chest x-ray was unremarkable. Given the patient's description of her epigastric pain and the fact that it mainly comes on at night while she has reclining on a sofa in his not related to exertion, I do not think that her pain is secondary to myocardial infarction or injury. Patient's elevated LFTs suggest that she may have biliary colic/gallstones as the cause for symptoms. The patient has no right upper quadrant tenderness at this time. I did want to get an ultrasound on her however she states she has to go home and meet her grandchildren's bus since there has no 1 else to take care of her children. I told the patient to stay on a low-fat diet and to talk to Dr. Yu about getting an outpatient fasting right upper quadrant ultrasound. Patient was given printed and verbal instructions and discharged home. Admission/Observation Consideration of admission/observation: Escalation of care including admission/observation considered Lab Data MDM Lab Attestation statement: I reviewed the patient's lab results. 02/12/24 11:17 02/12/24 11:17 Labs: Lab Results 02/12/24 02/12/24 Range/Units 11:17 11:39 WBC 5.4 (4.8-10.8) X10*3/uL RBC 4.63 (4.20-5.50) X10*6/uL Hgb 12.8 (12.0-16.0) g/dl Hct 38.8 (37.0-47.0) % MCV 83.8 (80.0-98.0) fL MCH 27.6 (27.0-33.0) pg MCHC 33.0 (31.0-35.0) g/dl RDW 15.4 (11.0-16.0) % Plt Count 263 (160-400) X10*3/uL MPV 10.9 (9.4-12.3) fL Immature Gran % (Auto) 0.2 (0.0-0.4) % Neut % (Auto) 60.6 (45-73) % Lymph % (Auto) 31.1 (20-40) % Duchesne % (Auto) 5.5 (2-11) % Eos % (Auto) 2.0 (0-4) % Baso % (Auto) 0.6 (0-2) % Lymph # (Auto) 1.7 (1.2-4.9) X10*3/uL Duchesne # (Auto) 0.3 (0.1-1.2) X10*3/uL Eos # (Auto) 0.1 (0.0-0.4) X10*3/uL Baso # (Auto) 0.0 (0.0-0.2) X10*3/uL Abs Immat Gran (auto) 0.01 (0.00-0.03) X10*3/uL Absolute Neuts (auto) 3.3 (2.0-8.3) x10*3/uL Absolute Nucleated RBC 0.000 (0.0-0.012) X10*3/uL Nucleated RBC % (auto) 0.0 (0.0-0.2) /100WBC PT 11.3 (11.1-13.3) SEC INR 0.9 (0.9-1.1) APTT 36.5 (26.0-36.8) SEC Sodium 142 (135-145) mmol/L Potassium 3.6 (3.3-5.1) mmol/L Chloride 106 (96-108) mmol/L Carbon Dioxide 29 (22-29) mmol/L Anion Gap 11 L (12-20) BUN 21 H (9-16) mg/dL Creatinine 0.75 (0.5-1.4) mg/dL Estim Creat Clear Calc 75.4 Estimated GFR > 60 Random Glucose 127 H (60-115) mg/dL Calcium 9.3 (8.4-10.2) mg/dL Total Bilirubin 0.4 (0.0-1.0) mg/dL AST 91 H (5-31) U/L ALT 216 H (0-31) U/L Alkaline Phosphatase 168 H (39-117) U/L Total Creatine Kinase 166 H (26-140) U/L Troponin I High Sens < 2.7 (<3.5-17.0) ng/L C-Reactive Protein 0.53 H (< or = 0.50) mg/dL B-Natriuretic Peptide 40 (<100) pg/mL Total Protein 8.4 H (6.5-8.0) g/dL Albumin 4.3 (3.5-5.0) g/dL Lipase 24 (8-78) U/L Independent Interpretation I performed an independent interpretation of an: EKG Interpretation: My independent interpretation patient's one-view chest x-ray is as follows: No acute disease My independent interpretation the patient's 12 EKG done at 10:53 hours is as follows: Sinus rhythm with a rate of 63, first-degree AV block with a KS interval 206 milliseconds, prolonged QRS duration 108 milliseconds, normal QTC 413 milliseconds, inverted T-waves in lead 1, aVL, V1 and V2. No PACs, no PVCs. I do not have an old EKG for comparison. Radiology Impression Discussion of test interpretation with radiology: I have reviewed the radiologist's reading. Radiologist Impression: XR chest 1V IMPRESSION: No acute cardiopulmonary process. Dictated By: Александр Gutierrez MD Chronic Conditions Patient?s care impacted by: Hypertension Discharge Plan Discharge Clinical Impression: Biliary colic, Abnormal LFTs (liver function tests) Patient Disposition: Home, Self-Care Instructions: Biliary Colic (ED), Low Fat Diet (ED) Additional Instructions: Your EKG today revealed a nonspecific changes but no evidence for a heart attack. We did do blood work on you and you are slightly anemic and your troponin (marker of heart damage) was below detectable limits which is reassuring. The way you describe your pain, I do not think that this is your heart that is causing your pain but I think that the pain may be coming from gallstones in your gallbladder. Your blood work did reveal an elevation in your liver enzymes (AST, ALT, alk- phos) with a normal bilirubin. Sometimes you can have stones in your gallbladder and 2-4 hours after you eat, the stones can block to drainage of bile from the gallbladder and give you pain in your stomach, chest and back and this pain can last for hours. Call Dr. Yu's office to see if he can schedule an outpatient ultrasound for you. The ultrasound needs to be done as a fasting test were you do not eat or drink anything for at least 8-12 hours prior to getting the test, therefore the test will need to be done in the morning after you eat nothing overnight. Stay on a low-fat diet to try to help prevent your pain Follow-up with your doctor in 2 days. Please return to the emergency department if your symptoms get worse or if you develop any symptoms that are concerning to you. Prescriptions: No Action amlodipine 2.5 mg tablet 2.5 mg PO DAILY hydrochlorothiazide 25 mg tablet 25 mg PO DAILY irbesartan 300 mg tablet 300 mg PO DAILY loratadine 10 mg tablet 10 mg PO DAILY ergocalciferol (vitamin D2) [Vitamin D2] 1,250 mcg (50,000 unit) capsule 1,250 mcg PO QWEEK cyanocobalamin (vitamin B-12) 1,000 mcg/mL solution 1,000 mcg IM Interventions: ED Discharge Assessment Last Done: 02/12/24 13:54 Discharge Date/Time: 02/12/24 13:55 Print Language: Malay
[2024-02-12 11:22] LABS: MANUAL DIFF FLAG NO
[2024-02-12 11:25] LABS: Basophils Percent Auto 0.6 % (0-2); Eosinophils Absolute Auto 0.1 X10*3/uL (0.0-0.4); Hematocrit 38.8 % (37.0-47.0); Hemoglobin 12.8 g/dl (12.0-16.0); Imm Gran Abs Auto 0.01 X10*3/uL (0.00-0.03); Imm Gran Pct Auto 0.2 % (0.0-0.4); Lymphocytes Absolute Auto 1.7 X10*3/uL (1.2-4.9); Lymphocytes Percent Auto 31.1 % (20-40); Mean Corpuscular Hemoglobin 27.6 pg (27.0-33.0); Mean Corpuscular Volume 83.8 fL (80.0-98.0); Mean Platelet Volume 10.9 fL (9.4-12.3); Monocytes Absolute Auto 0.3 X10*3/uL (0.1-1.2); Monocytes Percent Auto 5.5 % (2-11); Neutrophils Absolute Auto 3.3 x10*3/uL (2.0-8.3); Neutrophils Percent Auto 60.6 % (45-73); Platelet Count 263 X10*3/uL (160-400); Red Blood Count 4.63 X10*6/uL (4.20-5.50); Red Cell Distribution Width 15.4 % (11.0-16.0); White Blood Count 5.4 X10*3/uL (4.8-10.8)
[2024-02-12 11:52] LABS: INTERNATIONAL NORM RATIO 0.9 (0.9-1.1); Prothrombin Time 11.3 SEC (11.1-13.3)
[2024-02-12 11:52] LABS: Alanine Aminotransferase 216 U/L (0-31); Albumin Level 4.3 g/dL (3.5-5.0); Alkaline Phosphatase 168 U/L (39-117); Anion Gap 11 (12-20); Aspartate Amino Transferase 91 U/L (5-31); Bilirubin Total 0.4 mg/dL (0.0-1.0); Blood Urea Nitrogen 21 mg/dL (9-16); C Reactive Protein 0.53 mg/dL (< or = 0.50); Calcium 9.3 mg/dL (8.4-10.2); Carbon Dioxide 29 mmol/L (22-29); Chloride 106 mmol/L (96-108); Creatinine Clr Calc Pharmacy 75.4; Estimated Glomerular Filt Rate > 60; Glucose Random 127 mg/dL (60-115); Lipase 24 U/L (8-78); Potassium 3.6 mmol/L (3.3-5.1); Sodium 142 mmol/L (135-145); Total Protein 8.4 g/dL (6.5-8.0)
[2024-02-12 11:54] LABS: Partial Thromboplastin Time 36.5 SEC (26.0-36.8)
[2024-02-12 11:55] LABS: Troponin-I High Sensitivity < 2.7 ng/L (<3.5-17.0)
[2024-02-12 12:04] LABS: B Type Natriuretic Peptide 40 pg/mL (<100)
[2024-02-12 13:54] VITALS: BP 146/85; PULSE 63; RESP 16; TEMP 36.7; O2SAT 98
== END 2024-02-12 13:55 | disposition home or self-care (01) ==
PROVIDERS: Physician Assistant; Emergency Provider Emergency Medicine Emergency Medical Services; PCP Internal Medicine
DX: K80.50 Calculus of bile duct without cholangitis or cholecystitis without obstruction (principal); R79.89 Other specified abnormal findings of blood chemistry; R10.13 Epigastric pain; R06.02 Shortness of breath; I10 Essential (primary) hypertension
CPT/HCPCS: 36415; 71045; 80053; 82550; 83690; 83880; 84484; 85025; 85610; 85730; 86140; 93005; 99283

== ENCOUNTER → 2024-02-12 10:55 | Outpatient (BNV) | payer OTHER, SELFPAY | PROVIDERS: Emergency Provider Emergency Medicine Emergency Medical Services; PCP Internal Medicine; Visit Provider Internal Medicine Cardiovascular Disease | DX: R94.31 Abnormal electrocardiogram [ECG] [EKG] (principal); I44.4 Left anterior fascicular block | CPT/HCPCS: 93010 ==

== ENCOUNTER 2024-03-14 07:11 | Outpatient (REF) | payer OTHER, SELFPAY ==
--- NOTE | ~2024-03-14 | US_ITS ---
EXAMINATION: US ABDOMEN COMPLETE CLINICAL INFORMATION: Abdominal pain. COMPARISON: None available. TECHNIQUE: Real-time imaging of the abdominal viscera. FINDINGS: PANCREAS: Normal. ABDOMINAL AORTA: The proximal, mid, and distal segments are normal in caliber. INFERIOR VENA CAVA: Visualized portions are normal. LIVER: The liver is normal in size. The liver contour is normal. Diffuse increased echogenicity of liver parenchyma. No focal hepatic lesion. There is no intrahepatic biliary duct dilatation seen. GALLBLADDER: The gallbladder is physiologically distended without evidence of stones, sludge, polyps, wall thickening or pericholecystic fluid. COMMON BILE DUCT: Normal in caliber measuring 0.5 cm in diameter. RIGHT KIDNEY: No hydronephrosis. No renal calculi or focal parenchymal lesions. The kidney measures 9.5 cm in maximum dimension. LEFT KIDNEY: No hydronephrosis. No renal calculi or focal parenchymal lesions. The kidney measures 11.0 cm in maximum dimension. SPLEEN: Normal. The spleen measures 8.8 cm in maximum dimension. FREE FLUID: None. US/US abdomen complete IMPRESSION: Diffuse increased echogenicity of liver parenchyma likely reflects hepatic steatosis.
== END 2024-03-14 07:12 | disposition home or self-care (01) ==
LOC: HO.US 07:11
PROVIDERS: PCP Internal Medicine; Visit Provider Internal Medicine
DX: R10.0 Acute abdomen (principal)
CPT/HCPCS: 76700

== ENCOUNTER 2024-10-22 08:25 | Outpatient (REF) | payer OTHER, SELFPAY ==
[2024-10-22 08:47] LABS: MANUAL DIFF FLAG NO
[2024-10-22 08:49] LABS: Basophils Percent Auto 0.7 % (0-2); Eosinophils Absolute Auto 0.1 X10*3/uL (0.0-0.4); Eosinophils Percent Auto 2.7 % (0-4); Hematocrit 36.1 % (37.0-47.0); Hemoglobin 11.5 g/dl (12.0-16.0); Imm Gran Abs Auto 0.01 X10*3/uL (0.00-0.03); Imm Gran Pct Auto 0.2 % (0.0-0.4); Lymphocytes Absolute Auto 1.5 X10*3/uL (1.2-4.9); Lymphocytes Percent Auto 37.9 % (20-40); Mean Corpuscular HGB Conc 31.9 g/dl (31.0-35.0); Mean Corpuscular Hemoglobin 25.2 pg (27.0-33.0); Mean Corpuscular Volume 79.2 fL (80.0-98.0); Mean Platelet Volume 10.5 fL (9.4-12.3); Monocytes Absolute Auto 0.3 X10*3/uL (0.1-1.2); Monocytes Percent Auto 6.9 % (2-11); Neutrophils Absolute Auto 2.1 x10*3/uL (2.0-8.3); Neutrophils Percent Auto 51.6 % (45-73); Platelet Count 279 X10*3/uL (160-400); Red Blood Count 4.56 X10*6/uL (4.20-5.50); Red Cell Distribution Width 16.3 % (11.0-16.0); White Blood Count 4.1 X10*3/uL (4.8-10.8)
--- OUTSIDE RECORDS SUMMARY | 2024-10-22 08:55 | XMS_ITS | Clinical Summary ---
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 Name Role Phone Unavailable Primary Care Provider Unavailabl e Immunizations Name Administration Dates Next Due Influenza, seasonal, injectable, preservative fr ee 05/14/2024 Pfizer Covid-19 Vaccine 12+ 05/14/2024 Social History Tobacco Use Types Packs/Day Years Used Date Smoking Tobacco: Never Assessed Comments Unknown Sex and Gender Information Value Date Recorded Sex Assigned at Female 06/26/2022 10:39 AM EDT Legal Sex Female 10:39 AM EDT Gender Identity Female 06/26/2022 10:39 AM EDT Sexual Orientation Choose not to disclose 2021 10:39 AM EDT Plan of Treatment Health Maintenance Due Date Last Done Comments CT Colonography 1956 Colonoscopy 1956 Colorectal Cancer Screening 1956 Depression Screening 1956 FIT DNA/Cologuard 1956 FIT 1956 FOBT 1956 SDOH Screening 1956 Sigmoidoscopy 1956 Alcohol/Substance Use Screening 1968 Tobacco Screening 1968 Hepatitis C Screening 1974 DTaP/Tdap/Td Vaccines (1 - Tdap) 1975 Mammogram 1996 Pneumococcal Vaccine: 50+ Years (1 of 1 - PCV) 2006 Zoster Vaccines (2 of 2) 09/18/2018 07/24/2018 RSV Patients and Patients Aged 60 years or older (1 - 1-dose 75+ series) 2031 COVID-19 Vaccine Completed 05/14/2024, , 02/18/2022, Additional history exists Influenza Vaccine Completed 05/14/2024, 05/09/2018 HIB Vaccines Aged Out No longer eligi ble based on patient's age to complete this topic HPV Vaccines Aged Out No longer eligi ble based on patient's age to complete this topic Hepatitis A Vaccines Aged Out No long er eligible based on patient's age to complete this topic Hepatitis B Vaccines Aged Out No long er eligible based on patient's age to complete this topic IPV Vaccines Aged Out No longer eligi ble based on patient's age to complete this topic Meningococcal Vaccine Aged Out No joshua saurav eligible based on patient's age to complete this topic RSV under 20 months Aged Out No longe r eligible based on patient's age to complete this topic Rotavirus Vaccines Aged Out No longer eligible based on patient's age to complete this topic Insurance [facility] STANDARD
[2024-10-22 09:08] LABS: Anion Gap 12 (12-20); Blood Urea Nitrogen 14 mg/dL (9-16); Carbon Dioxide 26 mmol/L (22-29); Chloride 108 mmol/L (96-108); Estimated Glomerular Filt Rate > 60; Potassium 3.8 mmol/L (3.3-5.1); Sodium 142 mmol/L (135-145)
[2024-10-22 09:35] LABS: Vitamin B12 336 pg/mL (200-900)
== END 2024-10-22 08:26 | disposition home or self-care (01) ==
LOC: HO.LAB 08:25
PROVIDERS: PCP Family Medicine; Visit Provider Family Medicine
DX: I10 Essential (primary) hypertension (principal); D64.9 Anemia, unspecified
CPT/HCPCS: 36415; 80051; 82565; 82607; 84520; 85025

== ENCOUNTER 2024-12-29 09:22 | Outpatient (REF) | payer OTHER, SELFPAY ==
--- OUTSIDE RECORDS SUMMARY | 2024-12-29 10:08 | XMS_ITS | Clinical Summary ---
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
== END 2024-12-29 09:23 | disposition home or self-care (01) ==
LOC: HO.MAMMO 09:22
PROVIDERS: Visit Provider Internal Medicine
DX: Z12.31 Encounter for screening mammogram for malignant neoplasm of breast (principal)
CPT/HCPCS: 77063; 77067

== ENCOUNTER → 2024-12-29 10:00 | Outpatient (BNV) | payer OTHER, SELFPAY | PROVIDERS: Visit Provider Internal Medicine | DX: Z12.31 Encounter for screening mammogram for malignant neoplasm of breast (principal) | CPT/HCPCS: 77063; 77067 ==

== ENCOUNTER 2025-01-14 09:35 | Outpatient (AMB) | payer OTHER, SELFPAY ==
--- NOTE | 2025-01-06 15:25 | MHC.PC.OV ---
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 1. Little interest or pleasure in doing things: not at all 2. Feeling down, depressed, or hopeless: not at all 3. Trouble falling or staying asleep, or sleeping too much: not at all 4. Feeling tired or having little energy: not at all 5. Poor appetite or overeating: not at all 6. Feeling bad about yourself - or that you are a failure or have let yourself or your family down: not at all 7. Trouble concentrating on things, such as reading the newspaper or watching television: not at all 8. Moving or speaking so slowly that other people could have noticed. Or the opposite - being so fidgety or restless that you have been moving around a lot more than usual: not at all 9. Thoughts that you would be better off or of hurting yourself in some way: not at all Total score: 0 Source: Developed by Drs. Mann Rayo, Kirsten Fry, Gavin Kennedy and colleagues, with an educational júnior from [employer]. Thrive Questionnaire Date Thrive assessed: 01/06/25 I am a: Patient Within the past 12 months, did the food you bought not last and you didn't have the money to get more?: Never true Within the past 12 months, did you worry whether your food would run out before you got money to buy more?: Never true Do you have trouble paying for medicines?: No Do you have trouble getting transportation to medical appointments?: No Do you have trouble paying your heating and electricity bill?: No Do you have trouble taking care of your child, family member or friend?: No Do you have trouble with day-to-day activities such as bathing, preparing meals, shopping, managing finances, etc.?: No Are you currently unemployed and looking for a job?: No Are you interested in more education?: No THRIVE Score: 0 AUDIT C Alcohol Use Questionnaire (AUDIT-C) 1. How often do you have a drink containing alcohol?: Never 3. How often do you have six or more drinks on one occasion?: Never Total Score: 0 SUSANNAH-7 AMB Questionnaire SUSANNAH-7 Date SUSANNAH - 7 assessed: 01/06/25 Feeling nervous, anxious, or on edge: 0 = Not at all Not being able to stop or control worryin = Not at all Worrying too much about different things: 0 = Not at all Trouble relaxin = Not at all Being so restless that it is hard to sit still: 0 = Not at all Becoming easily annoyed or irritable: 0 = Not at all Feeling afraid as if something awful might happen: 0 = Not at all Total SUSANNAH-7 score (0-4 normal; 5-9 mild; 10-14 moderate; 15-21 severe): 0 Source: Developed by Drs. Mann Rayo, Kirsten Fry, Gavin Kennedy and colleagues, with an educational júnior from [employer] Coding
[2025-01-14 09:34] VITALS: BP 138/80; PULSE 69; TEMP 36.5; O2SAT 97; BMI 32.9
--- NOTE | 2025-01-14 09:34 | MHC.PC.OV ---
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 Required: No Accompanied by: Self / Same As Patient Allergies aspirin Adverse Reaction (Severe, Verified 01/14/25 09:56) bleeding in stomach Medication List - Last Reconciled 01/14/25 by Eber Angel MD amlodipine 2.5 mg PO DAILY cyanocobalamin (vitamin B-12) 1,000 mcg IM ergocalciferol (vitamin D2) (Vitamin D2) 1,250 mcg PO QWEEK hydrochlorothiazide 25 mg PO DAILY irbesartan 300 mg PO DAILY loratadine 10 mg PO DAILY naproxen (Naprosyn) 500 mg PO BID Tobacco use date assessed: 01/14/25 Fall risk assessment: No Falls in past year Last assessed Fall Risk: 01/14/25 Dental Screening Dental Screen Date: 01/14/25 Did you have a dental visit in the last 12 months?: No Did you have a dental problem in the last 6 months where you did not have access to dental care?: No [facility] Medical History (Updated 01/14/25 @ 09:54 by Eber Angel MD) Essential hypertension Osteoarthritis Surgical History History of colonoscopy (~07/15/14) Family History (Updated 01/14/25 @ 09:42 by Charley Flood MA) Mother No problems noted. Father No problems noted. 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 1. Little interest or pleasure in doing things: not at all 2. Feeling down, depressed, or hopeless: not at all 3. Trouble falling or staying asleep, or sleeping too much: not at all 4. Feeling tired or having little energy: not at all 5. Poor appetite or overeating: not at all 6. Feeling bad about yourself - or that you are a failure or have let yourself or your family down: not at all 7. Trouble concentrating on things, such as reading the newspaper or watching television: not at all 8. Moving or speaking so slowly that other people could have noticed. Or the opposite - being so fidgety or restless that you have been moving around a lot more than usual: not at all 9. Thoughts that you would be better off or of hurting yourself in some way: not at all Total score: 0 Source: Developed by Drs. Mann Rayo, Kirsten Fry, Gavin Kennedy and colleagues, with an educational júnior from [facility]. Thrive Questionnaire Date Thrive assessed: 01/14/25 I am a: Patient Within the past 12 months, did the food you bought not last and you didn't have the money to get more?: Never true Within the past 12 months, did you worry whether your food would run out before you got money to buy more?: Never true Do you have trouble paying for medicines?: No Do you have trouble getting transportation to medical appointments?: No Do you have trouble paying your heating and electricity bill?: No Do you have trouble taking care of your child, family member or friend?: No Do you have trouble with day-to-day activities such as bathing, preparing meals, shopping, managing finances, etc.?: No Are you currently unemployed and looking for a job?: No Are you interested in more education?: No THRIVE Score: 0 AUDIT C Alcohol Use Questionnaire (AUDIT-C) 1. How often do you have a drink containing alcohol?: Never 3. How often do you have six or more drinks on one occasion?: Never Total Score: 0 SUSANNAH-7 AMB Questionnaire SUSANNAH-7 Date SUSANNAH - 7 assessed: 01/14/25 Feeling nervous, anxious, or on edge: 0 = Not at all Not being able to stop or control worryin = Not at all Worrying too much about different things: 0 = Not at all Trouble relaxin = Not at all Being so restless that it is hard to sit still: 0 = Not at all Becoming easily annoyed or irritable: 0 = Not at all Feeling afraid as if something awful might happen: 0 = Not at all Total SUSANNAH-7 score (0-4 normal; 5-9 mild; 10-14 moderate; 15-21 severe): 0 Source: Developed by Drs. Mann Rayo, Kirsten Fry, Gavin Kennedy and colleagues, with an educational júnior from [facility]. Physical exam (Primary Care) Vital Signs: Last Vital Signs Temp 97.7 F 01/14/25 09:34 Pulse 69 01/14/25 09:34 BP 138/80 01/14/25 09:34 Pulse Ox 97 01/14/25 09:34 Oxygen Delivery Method Room Air 01/14/25 09:34 BMI result Body Mass Index 32.9 Tobacco/Smoking Status: Tobacco use Status Tobacco use date assessed 01/14/25 01/14/25 09:37 Patient Tobacco Use Status Former Tobacco user 01/14/25 09:42 e-Cigarette/Vaping Use Former Use 01/14/25 09:42 PHQ-9: PHQ-9 Score PHQ-9: Total score 0 01/14/25 09:42 Thrive Assessment: Date of Thrive Assessment Date Thrive assessed 01/14/25 01/14/25 09:37 Coding Level of Care Code New Pt Level 4 (21817) Complex EM visit Add On G2211 Diagnoses Osteoarthritis M19.90 Essential hypertension I10 Assessment & Plan Assessment & Plan (1) Osteoarthritis: Code(s): M19.90 - Unspecified osteoarthritis, unspecified site Category: Medical Plan: Naprosyn called in. Use intermittently and space it with Tylenol (2) Essential hypertension: Code(s): I10 - Essential (primary) hypertension Category: Medical Plan: BP is in range, Continue current medications. Plan History of Present Illness The patient is a 69-year-old female presenting for evaluation and management of osteoarthritis-related joint pain and gastrointestinal concerns. The pain, affecting various joints, has been aggravated by recent weather conditions over the past two weeks, limiting her physical activity. She manages symptoms primarily with extra-strength acetaminophen and prefers topical treatments due to stomach sensitivity with oral NSAIDs. Additionally, the patient experiences dysphagia, specifically when consuming rice, contributing to her concern of potential esophageal or gastric pathology, given her longstanding history of peptic ulcer disease. Her last gastroenterological evaluation occurred ten years prior, indicating a potential interval need for reassessment coincident with her due colonoscopy for a complete evaluation. 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 - She is the primary caregiver for her 11-year-old grandchild. 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 Review of Systems - Musculoskeletal: Reports joint pain, especially with changes in weather. - Gastrointestinal: Reports dysphagia when consuming rice. Denies further gastrointestinal symptoms currently. - Cardiovascular: Denies any issues with hypertension control. Physical Exam General: Cooperative and healthy appearing Nutritional Appearance: Well nourished Orientation/consciousness: Patient oriented x3 Limitations: No limitations Head: Normal to inspection General: Appearance normal, both eyes and all related structures Neck: Normal visual inspection Chest: Normal palpation of entire chest wall Respiratory: No pain ormal respiratory effort Neurology: Patient oriented x3 Results Plan 1. Osteoarthritis - Provided Naprosyn prescription, recommended continued acetaminophen use. 2. Gastroesophageal Reflux With Dysphagia - Scheduled endoscopy for evaluation and management. 3. History Of Peptic Ulcer Disease - Endoscopy planned during colonoscopy evaluation. 4. Essential Hypertension - Antihypertensive regimen to be continued, with planned fasting lipid profile. Discussion Notes During the appointment, I discussed the exacerbation of the patient?s osteoarthritis symptoms, recommending Naprosyn 500 mg with continued use of acetaminophen and topical treatments. I explained the plan to coordinate her upcoming colonoscopy with an endoscopic evaluation to assess her dysphagia and history of peptic ulcers. We reviewed the risks and benefits of these procedures, emphasizing the importance of evaluating her gastrointestinal symptoms. The current antihypertensive regimen remains effective; however, blood testing for cholesterol levels was instructed, highlighting overall cardiovascular health considerations. We agreed upon procedures and follow-up plans, and the patient expressed understanding and consented to the outlined management strategy. Patient Instructions - Take Naprosyn 500 mg as needed for joint pain, without exceeding the recommended dosage. - Continue using extra-strength acetaminophen and topical treatments as needed. - Avoid foods that aggravate dysphagia, particularly rice, until further evaluation. - Follow recommendations for fasting before provided lab tests. - Attend scheduled colonoscopy and endoscopy appointments. - Contact medical office for any changes in symptoms or new concerns. Orders: Orders Thyroid Stimulating Hormone Today I10 - Essential (primary) hypertension, M19.90 - Unspecified osteoarthritis, unspecified site Lipid Panel Today I10 - Essential (primary) hypertension, M19.90 - Unspecified osteoarthritis, unspecified site UA and rflx microscopic Today I10 - Essential (primary) hypertension, M19.90 - Unspecified osteoarthritis, unspecified site Referrals Gastroenterology Referral Z12.11 - Encounter for screening for malignant neoplasm of colon Medications: New naproxen (Naprosyn) 500 mg PO BID 30 tabs 0RF
--- OUTSIDE RECORDS SUMMARY | 2025-01-14 10:50 | XMS_ITS | Clinical Summary ---
Author Organization [employer] Address [address] [place] [address] Care Team Providers Care Rivet Sorter Name Role Phone Unavailable Primary Care Provider Unavailabl e Immunizations Immunization Administration Dates Next Due Influenza, seasonal, injectable, [...] Zoster Vaccines (2 of 2) 09/18/2018 07/24/2018 COVID-19 Vaccine (7 - season) 2024 05/14/2024, 12/08/2022, 02/18/2022, Additional history exists RSV Patients and Patients Aged 60 years or older (1 - 1-dose 75+ series) 2031 Influenza Vaccine Completed 05/14/2024, 05/09/2018 HIB Vaccines [...] patient's age to complete this topic Meningococcal B Vaccine Aged Out No l onger eligible based on patient's age to complete this topic Meningococcal Vaccine Aged Out No joshua saurav eligible based on patient's age to complete this topic RSV under 20 months Aged Out No longe r eligible based on patient's age to complete this topic Rotavirus Vaccines Aged Out No longer eligible based on patient's age to complete this topic Insurance [facility] STANDARD
== END 2025-01-14 10:15 | disposition home or self-care (01) ==
LOC: HO.HMCHD 09:35
PROVIDERS: PCP Internal Medicine; Visit Provider Internal Medicine
DX: M19.90 Unspecified osteoarthritis, unspecified site (principal); I10 Essential (primary) hypertension

== ENCOUNTER → 2025-01-14 09:35 | Outpatient (BNVA) | payer OTHER, SELFPAY | PROVIDERS: PCP Internal Medicine; Visit Provider Internal Medicine | DX: Z13.89 Encounter for screening for other disorder (principal) ==

== ENCOUNTER 2025-01-14 10:03 | Outpatient (REF) | payer OTHER, SELFPAY ==
--- OUTSIDE RECORDS SUMMARY | 2025-01-14 11:27 | XMS_ITS | Clinical Summary ---
Author Organization [employer] Address [address] [facility] [facility] [address] [place] [address] Care Team Providers Care House Cleaner Name Role Phone Unavailable Primary Care Provider [...] patient's age to complete this topic Insurance [facility] STANDARD
[2025-01-14 11:59] LABS: Appearance Urine Clear; Color Urine Yellow; Glucose Urine UA Negative (Negative); Leukocyte Esterase Urine Negative (Negative); Nitrite Urine Negative (Negative); Specific Gravity - Urine 1.015 (1.005-1.025); Urine Blood Negative (Negative); Urine Ketones Negative (Negative); Urine Protein Negative (Neg-Trace)
[2025-01-14 13:54] LABS: Cholesterol 239 mg/dL (<200); HDL Cholesterol 62 mg/dL (>40); LDL Cholesterol Calculated 156 mg/dL (<100); Triglycerides 109 mg/dL (<150)
[2025-01-14 14:04] LABS: Thyroid Stimulating Hormone 4.14 uIU/mL (0.32-4.0)
== END 2025-01-14 10:04 | disposition home or self-care (01) ==
LOC: HO.10HDL 10:03
PROVIDERS: Visit Provider Internal Medicine
DX: M19.90 Unspecified osteoarthritis, unspecified site (principal); K21.9 Gastro-esophageal reflux disease without esophagitis; R13.10 Dysphagia, unspecified; I10 Essential (primary) hypertension; Z87.11 Personal history of peptic ulcer disease
CPT/HCPCS: 36415; 80061; 81003; 84443; 96127; 99202

== ENCOUNTER 2025-03-11 08:58 | Outpatient (REF) | payer OTHER, SELFPAY ==
--- OUTSIDE RECORDS SUMMARY | 2025-03-11 09:11 | XMS_ITS | Clinical Summary ---
Author Organization [employer] Address [address] [place] [address] [address] [place] [address] Care Team Providers Care Superintendent Distribution Name Role Phone Unavailable Primary Care Provider [...] 2024 05/14/2024, 12/08/2022, 02/18/2022, Additional history exists Influenza Vaccine (#1) 2025 05/14/2024, 2017 RSV Patients and Patients Aged 60 years or older (1 - 1-dose 75+ series) 2031 HIB Vaccines Aged Out No longer eligi [...] patient's age to complete this topic Insurance [facility] STANDARD
[2025-03-11 11:26] LABS: Thyroid Stimulating Hormone 2.33 uIU/mL (0.32-4.0)
== END 2025-03-11 08:59 | disposition home or self-care (01) ==
LOC: HO.10HDL 08:58
PROVIDERS: Visit Provider Internal Medicine
DX: E03.9 Hypothyroidism, unspecified (principal)
CPT/HCPCS: 36415; 84443

== ENCOUNTER 2025-05-11 13:39 | Outpatient (REF) | payer MEDICARE, SELFPAY ==
--- OUTSIDE RECORDS SUMMARY | 2025-05-05 07:10 | XMS_ITS ---
Author Organization [facility] Address [address] [place] [address] Care Team Providers Care Manager Search Engine Name Role Phone JOSE PRETTY Primary Care Provider Mann Rowe [phone] Allergies Allergen (clinical drug ingredient) Drug/Non Drug Allergy documented on EMR Reaction Allergy Type Onset Date Status aspirin Aspirin stomach upset Drug Allergy Act oli Results Component Value Reference Range Notes Ferritin (Not yet reviewed b y provider) Interpretation: Performing Lab:[facility], [address] [place] [phone] Notes/Report: Ferritin 10 10-250 ng/mL Vitamin B12 and Folate (Not yet reviewed by provider) Interpretation: Performing Lab:[facility], [address] [place] [phone] Notes/Report: Vitamin B12 253 200-900 pg/mL NORMAL 200-900 PG/ML INDETERMINATE 160-199 PG/ML DEFICIENT < 160 PG/ML Folate 9.5 > or = 4.0 ng/mL Reference Values: > or = 4.0 ng/mL < 4.0 ng/mL suggests folate deficiency Methotrexate, aminopterin and folinic acid (leucovorin) are chemotherapeutic agents whose molecular structures are similar to folate; therefore, the Automobile [employer]ental Agent folate assay cannot be used for patients [...] Status Risk Notes Problem Colon cancer screening (724781450) Colon cancer screening (Z12.11) Active confirmed Problem Preprocedural examination (051262672160867) Preprocedural examination (Z01.818) Active confirmed Problem Dysphagia (80615639) Dysphagia (R13.10) Active confirmed Problem Anemia (904782756) Anemia (D64.9) Active confirmed Vital Signs Temperature 96.2 degrees Fahrenheit 05/05/20 25 Blood pressure systolic 001 mm Hg 05/05/20 25 Blood pressure diastolic 01 mm Hg 025 Height 63 in 05/05/2025 Weight 194.0 lbs 05/05/2025 BMI 34.36 kg/m2 05/05/2025 Procedures Procedure Date Ordered Date Performed Result Body Sit e UPPER GI ENDOSCOPY 05/05/2025 N/A COLONOSCOPY 05/05/2025 N/A Encounters Encounter Location Date Provider Diagnosis [facility] [address] [place] [address] 05/05/2025 Mann Villafana Colon cancer screeni ng [...] Provider Name:Mann Villafana , 08/10/2025 10:40:00 AM, [address] [place] [address], [phone], Progress Notes * ELVIRA MATADOB: [birth year] (69 yo F)Acc No.[id number]:05/05/2025 Progress Notes Patient: ELVIRA GORE Provider: Hemalatha Villafana MD :1955 A ge:69 Y S ex:Female Date:05/05/2025 Address:[address] [place], [place] [id number] Pcp:JOSE PRETTY Subjective: * Chief Complaints: * [...] her previous GI procedures were done in [place]. Her laboratories in September revealed normal chemistries [...] do not have those results., IBS, Denies [place],DM,CVA,Lung disease,renal disease, Hypothyroidism, Negative colonoscopy in [address] [place] [address] Kwabena Hines. She had previous [...] * Procedure Codes: 4 5378 DIAGNOSTIC COLONOSCOPY, 35233 UPPR GI ENDOSCOPY, DIAGNOSIS * Preventive Medicine: [...] 0 05/05/2025 Generated for Rudy lopez/Dell/Noahitting on: 05/11/2025 06:58 PM EDT History and Physical Notes * [...] her previous GI procedures were done in [place]. Her laboratories in September revealed normal chemistries and renal function.Her hemoglobin was slightly low at 11.5 with MCV of 79. Her hemoglobin in January 2024 was 12.8.
[2025-05-11 13:58] LABS: MANUAL DIFF FLAG NO
[2025-05-11 14:24] LABS: Hematocrit 34.1 % (37.0-47.0); Hemoglobin 10.9 g/dl (12.0-16.0); Imm Gran Abs Auto 0.03 X10*3/uL (0.00-0.03); Imm Gran Pct Auto 0.4 % (0.0-0.4); Lymphocytes Absolute Auto 2.7 X10*3/uL (1.2-4.9); Mean Corpuscular HGB Conc 32.0 g/dl (31.0-35.0); Mean Corpuscular Hemoglobin 24.3 pg (27.0-33.0); Mean Corpuscular Volume 75.9 fL (80.0-98.0); NRBC Abs Auto 0.000 X10*3/uL (0.0-0.012); NRBC Pct Auto 0.0 /100WBC (0.0-0.2); Platelet Count 271 X10*3/uL (160-400); Red Blood Count 4.49 X10*6/uL (4.20-5.50); White Blood Count 6.8 X10*3/uL (4.8-10.8)
[2025-05-11 14:56] LABS: Iron 23 mcg/dL (30-160); Percent Iron Saturation 6 % (15-50); Total Iron Binding Capacity 361 mcg/dL (228-428); Unsaturated Iron Binding 338 ug/dL
[2025-05-11 15:12] LABS: Ferritin 10 ng/mL (10-250)
[2025-05-11 15:28] LABS: Folate 9.5 ng/mL (> or = 4.0); Vitamin B12 253 pg/mL (200-900)
--- OUTSIDE RECORDS SUMMARY | 2025-05-11 18:59 | XMS_ITS | Clinical Summary ---
Author Organization [employer] Address [address] [place] [address] [address] [place] [address] Care Team Providers Care Wash Rack Operator Name Role Phone Unavailable Primary Care Provider [...] 09/18/2018 07/24/2018 COVID-19 Vaccine (7 - season) 2025 05/14/2024, 12/08/2022, 02/18/2022, Additional history exists Influenza [...] patient's age to complete this topic Insurance [facility]
--- OUTSIDE RECORDS SUMMARY | 2025-05-11 18:59 | XMS_ITS | Patient Health Record ---
Author Organization [facility] Address [address] [place] [address] Care Team Providers Care Form Setter Metal Road Forms Name Role Phone JOSE PRETTY Primary Care Provider Mann Rowe [phone] Allergies Allergen (clinical drug ingredient) Drug/Non Drug Allergy documented on EMR Reaction Allergy Type Onset Date Status aspirin Aspirin stomach upset Drug Allergy Act oli Results Component Value Reference Range Notes Ferritin (Not yet reviewed b y provider) Interpretation: Performing Lab:[facility], [address] [place] [phone] Notes/Report: Ferritin 10 10-250 ng/mL Vitamin B12 and Folate (Not yet reviewed by provider) Interpretation: Performing Lab:[facility], [address] [place] [phone] Notes/Report: Vitamin B12 253 200-900 pg/mL NORMAL 200-900 PG/ML INDETERMINATE 160-199 PG/ML DEFICIENT < 160 PG/ML Folate 9.5 > or = 4.0 ng/mL Reference Values: > or = 4.0 ng/mL < 4.0 ng/mL suggests folate deficiency Methotrexate, aminopterin and folinic acid (leucovorin) are chemotherapeutic agents whose molecular structures are similar to folate; therefore, the [employer] folate assay cannot be used for patients using these drugs. Complete Blood Count Auto Di ff (Not yet reviewed by provider) Interpretation: Performing Lab:[facility], [address] [place] [phone] Notes/Report: White Blood Count 6.8 4.8-10.8 X10*3/uL Red Blood Count 4.49 4.20-5.50 X10*6/uL Hemoglobin 10.9 12.0-16.0 g/dl Hematocrit 34.1 37.0-47.0 % Mean Corpuscular Volume 75.9 80.0-98.0 fL Mean Corpuscular Hemoglobin 24.3 27.0-33.0 pg Mean Corpuscular HGB Conc 32.0 31.0-35.0 g/dl Red Cell Distribution Width 17.4 11.0-16.0 % Platelet Count 271 160-400 X10*3/uL Mean Platelet Volume 11.0 9.4-12.3 fL Neutrophils Percent Auto 49.8 45-73 % Imm Gran Pct Auto 0.4 0.0-0.4 % Lymphocytes Percent Auto 40.1 20-40 % Monocytes Percent Auto 7.1 2-11 % Eosinophils Percent Auto 2.2 0-4 % Basophils Percent Auto 0.4 0-2 % NRBC Pct Auto 0.0 0.0-0.2 /100WBC Neutrophils Absolute Auto 3.4 2.0-8.3 x10*3/u L Imm Gran Abs Auto 0.03 0.00-0.03 X10*3/uL Lymphocytes Absolute Auto 2.7 1.2-4.9 X10*3/u L Monocytes Absolute Auto 0.5 0.1-1.2 X10*3/uL Eosinophils Absolute Auto 0.2 0.0-0.4 X10*3/u L Basophils Absolute Auto 0.0 0.0-0.2 X10*3/uL NRBC Abs Auto 0.000 0.0-0.012 X10*3/uL IRON PROFILE (Not yet review ed by provider) Interpretation: Performing Lab:[facility], [address] [place] [phone] Notes/Report: Iron 23 30-160 mcg/dL Total Iron Binding Capacity 361 228-428 mcg/d L Percent Iron Saturation 6 15-50 % Unsaturated Iron Binding 338 Reason For Referral No Information Medications Medication SIG (Take, Route, Frequency, Duration) [...] e morning Orally Once a day Active Atorvastatin Calcium 20 MG 1 tablet Oral ly Once a day Active Loratadine 10 MG 1 capsule Orally Onc e a day Active Irbesartan 300 MG 1 tablet Orally Once a day Active Problems Problem Type SNOMED Code ICD Code Onset Dates Problem Status W/U Status Risk Notes Problem Colon cancer screening (237061208) Colon cancer screening (Z12.11) Active confirmed Problem Dysphagia (27158378) Dysphagia (R13.10) Active confirmed Problem Preprocedural examination (346284467151188) Preprocedural examination (Z01.818) Active confirmed Problem Anemia (756159305) Anemia (D64.9) Active confirmed Vital Signs Temperature 96.2 degrees Fahrenheit 05/05/2025 Blood pressure diastolic 01 mm Hg 05/05/2025 Height 63 in 05/05/2025 Blood pressure systolic 001 mm Hg 05/05/2025 Weight 194.0 lbs 05/05/2025 BMI 34.36 kg/m2 05/05/2025 Procedures Procedure Date Ordered Date Performed Result Body Sit e UPPER GI ENDOSCOPY 05/05/2025 N/A COLONOSCOPY 05/05/2025 N/A Encounters Encounter Location Date Provider Diagnosis [facility] [address] [place] [phone] 05/05/2025 Mann Villafana Colon cancer screeni ng Z12.11 ; Preprocedural examination Z01.818 ; Dysphagia R13.10 and Anemia D64.9 [facility] [address] [place] [phone] 05/05/2025 Mann Villafana [facility] [address] [place] [phone] 05/05/2025 Mann Villafana Assessments Encounter Date Diagnosis (ICD Code) Assessment [...] IBC (FE) 05/05/2025 CBC w DIFF 05/05/2025 Complete Blood Count Auto Diff IRON PROFILE 05/11/2025 Ferritin 05/05/2025 Vitamin B12 and Folate 05/05/2025 Next Appt Details Provider Name:Mann Villafana , 08/10/2025 10:40:00 AM, [address] [place] [address] , [place], [place], [phone], Insurance Providers Payer Name Payer Address Payer Phone Subscriber Number Group Number Insured Name Patient Relationship to Insured Coverage Start Date Coverage End Date [employer] [employer] [facility] [address] [place] [address] [id number] ELVIRA MATA Self - patient is the insured Medical (General) History Medical History History ICD Code Arthritis HTN Gastirc ulcers---describes u pper endos--most recent one was in [address] Kwabena Hines and is described as negative. She did have duodenal biopsies but I do not have those results. IBS Denies [place],DM,CVA,Lung disease,renal dise ase Hypothyroidism Negative colonoscopy in [address] [place] [address] Kwabena Hines. She had previous negative colonoscopies as well. Her colonoscopy report from 2014 describes no abnormalities and colon biopsies were done to rule out underlying microscopic colitis, but I do not have the results of that pathology.
== END 2025-05-11 13:40 | disposition home or self-care (01) ==
LOC: HO.LAB 13:39
PROVIDERS: PCP Student in an Organized Health Care Education/Training Program; Visit Provider Internal Medicine
DX: D64.9 Anemia, unspecified (principal)
CPT/HCPCS: 36415; 82607; 82728; 82746; 83540; 85025

== ENCOUNTER 2025-05-12 10:00 | Outpatient (AMB) | payer OTHER, SELFPAY ==
--- OUTSIDE RECORDS SUMMARY | 2025-05-05 07:10 | XMS_ITS ---
Author Organization [facility] Address [address] [place] [address] Care Team Providers Care Search Marketing Analyst Name Role Phone JOSE PRETTY Primary Care Provider Mann Rowe [phone] Allergies Allergen (clinical drug ingredient) Drug/Non Drug Allergy documented on EMR Reaction Allergy Type Onset Date Status aspirin Aspirin stomach upset Drug Allergy Act oli Results Component Value Reference Range Notes Ferritin (Not yet reviewed b y provider) Interpretation: Performing Lab:[facility], [address] [place] [phone] Notes/Report: Ferritin 10 10-250 ng/mL Vitamin B12 and Folate (Not yet reviewed by provider) Interpretation: Performing Lab:[facility], [address] [place] [phone] Notes/Report: Vitamin B12 253 200-900 pg/mL NORMAL 200-900 PG/ML INDETERMINATE 160-199 PG/ML DEFICIENT < 160 PG/ML Folate 9.5 > or = 4.0 ng/mL Reference Values: > or = 4.0 ng/mL < 4.0 ng/mL suggests folate deficiency Methotrexate, aminopterin and folinic acid (leucovorin) are chemotherapeutic agents whose molecular structures are similar to folate; therefore, the Battery [employer]ger folate assay cannot be used for patients using these drugs. REASON FOR VISIT Patient presents today for a COLON SCREENING Medications Medication SIG (Take, Route, Frequency, Duration) Notes Start Date End Date Status Naproxen 500 MG 1 tablet as needed Orally every 12 hrs Active Levothyroxine Sodium 25 MCG 1 tablet in the morning on an empty stomach Orally Once a day Active Vitamin D 125 MCG 1 capsule Orally Onc e a day Active amLODIPine Besylate 2.5 MG 1 tablet Oral ly Once a day Active Atorvastatin Calcium 20 MG 1 tablet Oral ly Once a day Active hydroCHLOROthiazide 25 MG 1 tablet in th e morning Orally Once a day Active Loratadine 10 MG 1 capsule Orally Onc e a day Active Irbesartan 300 MG 1 tablet Orally Once a day Active Problems Problem Type SNOMED Code ICD Code Onset Dates Problem Status W/U Status Risk Notes Problem Colon cancer screening (753630916) Colon cancer screening (Z12.11) Active confirmed Problem Preprocedural examination (474159589389533) Preprocedural examination (Z01.818) Active confirmed Problem Dysphagia (42193345) Dysphagia (R13.10) Active confirmed Problem Anemia (354326357) Anemia (D64.9) Active confirmed Vital Signs Temperature 96.2 degrees Fahrenheit 05/05/20 25 Blood pressure systolic 001 mm Hg 05/05/20 25 Blood pressure diastolic 01 mm Hg 025 Height 63 in 05/05/2025 Weight 194.0 lbs 05/05/2025 BMI 34.36 kg/m2 05/05/2025 Procedures Procedure Date Ordered Date Performed Result Body Sit e UPPER GI ENDOSCOPY 05/05/2025 N/A COLONOSCOPY 05/05/2025 N/A Encounters Encounter Location Date Provider Diagnosis [facility] [address] [place] [address] 05/05/2025 Mann Villafana Colon cancer screeni ng Z12.11 ; Preprocedural examination Z01.818 ; Dysphagia R13.10 and Anemia D64.9 Assessments Encounter Date Diagnosis (ICD Code) Assessment Notes Treatment Notes Treatment Clinical Notes Section Notes 05/05/2025 Colon cancer screening (ICD-10 - Z12.11) Overall, Elvira appears well. She is not having any particularly new nor worrisome GI complaints. However in regard to her sensation of some dysphagia to rice I did recommend an upper endoscopy for evaluation although I did advise her that I do not think any significant pathology will be found. However, she is in favor of this given her family history of esophageal cancer in her mother and Elvira's last upper endoscopy being over 10 years ago. Given her borderline microcytic anemia it would be important to exclude any upper GI source of blood loss in relation to her chronic NSAIDs. She will also undergo a follow-up screening colonoscopy on the same day as her last exam was over 10 years ago. Again, with the borderline microcytic anemia it would be important to exclude any lower GI source of blood loss. We did review the rationale for the colonoscopy in regard to colorectal cancer prevention. Full consent has been obtained from her for both procedures, including risks of bleeding and perforation. The procedures will be done with monitored anesthesia care. She was given the below instructions regarding adjustment of her medications for the procedure. In regard to her borderline microcytic anemia I shall check a repeat CBC along with iron studies, ferritin level, B12 level, and folate level. Elvira was comfortable with this plan. Thank you again for allowing me to participate in Elvira's care. I shall continue to keep you advised of her progress. 05/05/2025 Preprocedural examination (ICD-10 - Z01.818) Overall, Elvira appears well. She is not having any particularly new nor worrisome GI complaints. However in regard to her sensation of some dysphagia to rice I did recommend an upper endoscopy for evaluation although I did advise her that I do not think any significant pathology will be found. However, she is in favor of this given her family history of esophageal cancer in her mother and Elvira's last upper endoscopy being over 10 years ago. Given her borderline microcytic anemia it would be important to exclude any upper GI source of blood loss in relation to her chronic NSAIDs. She will also undergo a follow-up screening colonoscopy on the same day as her last exam was over 10 years ago. Again, with the borderline microcytic anemia it would be important to exclude any lower GI source of blood loss. We did review the rationale for the colonoscopy in regard to colorectal cancer prevention. Full consent has been obtained from her for both procedures, including risks of bleeding and perforation. The procedures will be done with monitored anesthesia care. She was given the below instructions regarding adjustment of her medications for the procedure. In regard to her borderline microcytic anemia I shall check a repeat CBC along with iron studies, ferritin level, B12 level, and folate level. Elvira was comfortable with this plan. Thank you again for allowing me to participate in Elvira's care. I shall continue to keep you advised of her progress. 05/05/2025 Dysphagia (ICD-10 - R13.10) Overall, Elvira appears well. She is not having any particularly new nor worrisome GI complaints. However in regard to her sensation of some dysphagia to rice I did recommend an upper endoscopy for evaluation although I did advise her that I do not think any significant pathology will be found. However, she is in favor of this given her family history of esophageal cancer in her mother and Elvira's last upper endoscopy being over 10 years ago. Given her borderline microcytic anemia it would be important to exclude any upper GI source of blood loss in relation to her chronic NSAIDs. She will also undergo a follow-up screening colonoscopy on the same day as her last exam was over 10 years ago. Again, with the borderline microcytic anemia it would be important to exclude any lower GI source of blood loss. We did review the rationale for the colonoscopy in regard to colorectal cancer prevention. Full consent has been obtained from her for both procedures, including risks of bleeding and perforation. The procedures will be done with monitored anesthesia care. She was given the below instructions regarding adjustment of her medications for the procedure. In regard to her borderline microcytic anemia I shall check a repeat CBC along with iron studies, ferritin level, B12 level, and folate level. Elvira was comfortable with this plan. Thank you again for allowing me to participate in Elvira's care. I shall continue to keep you advised of her progress. 05/05/2025 Anemia (ICD-10 - D64.9) Overall, Elvira appears well. She is not having any particularly new nor worrisome GI complaints. However in regard to her sensation of some dysphagia to rice I did recommend an upper endoscopy for evaluation although I did advise her that I do not think any significant pathology will be found. However, she is in favor of this given her family history of esophageal cancer in her mother and Elvira's last upper endoscopy being over 10 years ago. Given her borderline microcytic anemia it would be important to exclude any upper GI source of blood loss in relation to her chronic NSAIDs. She will also undergo a follow-up screening colonoscopy on the same day as her last exam was over 10 years ago. Again, with the borderline microcytic anemia it would be important to exclude any lower GI source of blood loss. We did review the rationale for the colonoscopy in regard to colorectal cancer prevention. Full consent has been obtained from her for both procedures, including risks of bleeding and perforation. The procedures will be done with monitored anesthesia care. She was given the below instructions regarding adjustment of her medications for the procedure. In regard to her borderline microcytic anemia I shall check a repeat CBC along with iron studies, ferritin level, B12 level, and folate level. Elvira was comfortable with this plan. Thank you again for allowing me to participate in Elvira's care. I shall continue to keep you advised of her progress. Plan Of Treatment Pending Test Test Name Order Date UPPER GI ENDOSCOPY 05/05/2025 COLONOSCOPY 05/05/2025 IRON + IBC (FE) 05/05/2025 CBC w DIFF 05/05/2025 Ferritin 05/05/2025 Vitamin B12 and Folate 05/05/2025 Next Appt Details Provider Name:Mann Villafana , 08/10/2025 10:40:00 AM, [address] [place] [address], [phone], Progress Notes * ELVIRA MATADOB: [birth year] (69 yo F)Acc No.[id number]:05/05/2025 Progress Notes Patient: ELVIRA GORE Provider: Hemalatha Villafana MD :1955 A ge:69 Y S ex:Female Date:05/05/2025 Address:[address] [place], [place] [id number] Pcp:JOSE PRETTY Subjective: * Chief Complaints: * 1 . Patient presents today for a COLON SCREENING. * HPI: i ncontinence: I saw Elvira in consultation today regard to further evaluation of her occasional dysphagia, family history of esophageal cancer, her anemia, and need for colorectal cancer screening. As you know, Elvira is a generally healthy 69-year-old female who presently feels well from a GI standpoint. She enjoys a good appetite and denies any significant heartburn, early satiety, nausea, nor vomiting. She does describe intermittent episodes of a transient dysphagia to things like rice. She describes occasionally having to get up from the table to walk around until the sensation passes. She denies any other foods or liquids that bother her. She describes upper endoscopies in the past for stomach ulcers but her last one was 10 years ago and was reportedly negative. She does have a family history of esophageal cancer in her mother. She denies any abdominal pain, signs of jaundice, nor any unintentional weight loss. She has had a previous history of IBS with irregular bowel movements but reports that for the past number of years things have been much better by eating a healthier diet. She reports that her bowel movements are presently regular and without any signs of bleeding. She denies any known family history of colorectal cancer. She describes her last colonoscopy was negative 10 years ago. She describes colonoscopies prior to that as well which were negative for polyps. Of note, all of her previous GI procedures were done in [place]. Her laboratories in September revealed normal chemistries and renal function.Her hemoglobin was slightly low at 11.5 with MCV of 79. Her hemoglobin in January 2024 was 12.8. * Medical History: A rthritis, HTN, Gastirc ulcers---describes upper endos--most recent one was in [address] Kwabena Hines and is described as negative. She did have duodenal biopsies but I do not have those results., IBS, Denies DE,DM,CVA,Lung disease,renal disease, Hypothyroidism, Negative colonoscopy in [address] [place] [address] Kwabena Hines. She had previous negative colonoscopies as well. Her colonoscopy report from 2013 describes no abnormalities and colon biopsies were done to rule out underlying microscopic colitis, but I do not have the results of that pathology.. * Surgical History: D enies Past Surgical History. * Hospitalization/Major Diagno stic Procedure: D enies Past Hospitalization. * Family History: F ather: . M other: . S iblings: alive, diagnosed with Colon polyps.? Sister had colon polyps but denies colon cancer nor liver disease in the family. Mother had esophageal cancer. * Social History: M iscellaneous: M arital status: single. 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 N onsmoker; no sig alcohol. * Medications: T aking Vitamin D 125 MCG Capsule 1 capsule Orally Once a day , Taking Naproxen 500 MG Tablet Delayed Release 1 tablet as needed Orally every 12 hrs , Taking Levothyroxine Sodium 25 MCG Tablet 1 tablet in the morning on an empty stomach Orally Once a day , Taking Loratadine 10 MG Capsule 1 capsule Orally Once a day , Taking Irbesartan 300 MG Tablet 1 tablet Orally Once a day , Taking hydroCHLOROthiazide 25 MG Tablet 1 tablet in the morning Orally Once a day , Taking Atorvastatin Calcium 20 MG Tablet 1 tablet Orally Once a day , Taking amLODIPine Besylate 2.5 MG Tablet 1 tablet Orally Once a day , Medication List reviewed and reconciled with the patient * Allergies: A spirin: stomach upset. Objective: * Vitals: W t:194.0lbs, Ht:63in, BMI: 34.36 Index, BP:001/01mm Hg, Temp:96.2, Ht-cm: 160.02, Wt-k. Assessment: * Assessment: 1. C olon cancer screening - Z12.11 (Primary) 2 . P reprocedural examination - Z01.818 3 . D ysphagia - R13.10 4 . A nemia - D64.9 Overall, Elvira appears w ell. She is not having any particularly new nor worrisome GI complaints. However in regard to her sensation of some dysphagia to rice I did recommend an upper endoscopy for evaluation although I did advise her that I do not think any significant pathology will be found. However, she is in favor of this given her family history of esophageal cancer in her mother and Elvira's last upper endoscopy being over 10 years ago. Given her borderline microcytic anemia it would be important to exclude any upper GI source of blood loss in relation to her chronic NSAIDs. She will also undergo a follow-up screening colonoscopy on the same day as her last exam was over 10 years ago. Again, with the borderline microcytic anemia it would be important to exclude any lower GI source of blood loss. We did review the rationale for the colonoscopy in regard to colorectal cancer prevention. Full consent has been obtained from her for both procedures, including risks of bleeding and perforation. The procedures will be done with monitored anesthesia care. She was given the below instructions regarding adjustment of her medications for the procedure. In regard to her borderline microcytic anemia I shall check a repeat CBC along with iron studies, ferritin level, B12 level, and folate level. Elvira was comfortable with this plan. Thank you again for allowing me to participate in Elvira's care. I shall continue to keep you advised of her progress. Plan: * Treatment: 2.?Dysphagia?Procedure: UPPER GI ENDOSCOPY* sched for 08/10/25 at 10:40 ammac 3.?Anemia?LAB: IRON + IBC (FE) ?LAB: CBC w DIFF ?LAB: Ferritin (Collection Date & Time - 05/11/2025 01:57 PM)* Value Reference Range F erritin 10 10-250 - ng/mL ?LAB: Vitamin B12 and Folate (Collection Date & Time - 05/11/2025 01:57 PM) * Value Reference Range V itamin B12 253 200-900 - pg/mL * F olate 9.5 > or = 4.0 - ng/mL * Procedure Codes: 4 5378 DIAGNOSTIC COLONOSCOPY, 77963 UPPR GI ENDOSCOPY, DIAGNOSIS * Preventive Medicine: Counseling: C are goal follow-up plan: A guido Normal BMI Follow-up G iving encouragement to exercise. Urinary Incontinence: U rinary Incontinence A ssessment: A bsent, P brent of care documented: N o, reason not specified. Screenings: F all Risk Screening F all Risk Assessment: N o falls in the past year, S creening: N o falls in the past year, P brent of Care: N ot documented, no reason specified. . * * The named appointment provid er may or may not be the originator of this progress note, and it is not deemed complete until electronically signed by the appointment provider. Sign off status: Pending * Provider: Hemalatha Villafana MD Date: 0 05/05/2025 Generated for Rudy lopez/Dell/Noahitting on: 0 05/12/2025 12:58 PM EDT History and Physical Notes * HPI (History of Present Illness) Category Sub-Category Detail Notes Category Not es incontinence I saw Elvira in consultation today regard to further evaluation of her occasional dysphagia, family history of esophageal cancer, her anemia, and need for colorectal cancer screening. As you know, Elvira is a generally healthy 69-year-old female who presently feels well from a GI standpoint. She enjoys a good appetite and denies any significant heartburn, early satiety, nausea, nor vomiting. She does describe intermittent episodes of a transient dysphagia to things like rice. She describes occasionally having to get up from the table to walk around until the sensation passes. She denies any other foods or liquids that bother her. She describes upper endoscopies in the past for stomach ulcers but her last one was 10 years ago and was reportedly negative. She does have a family history of esophageal cancer in her mother. She denies any abdominal pain, signs of jaundice, nor any unintentional weight loss. She has had a previous history of IBS with irregular bowel movements but reports that for the past number of years things have been much better by eating a healthier diet. She reports that her bowel movements are presently regular and without any signs of bleeding. She denies any known family history of colorectal cancer. She describes her last colonoscopy was negative 10 years ago. She describes colonoscopies prior to that as well which were negative for polyps. Of note, all of her previous GI procedures were done in [place]. Her laboratories in September revealed normal chemistries and renal function.Her hemoglobin was slightly low at 11.5 with MCV of 79. Her hemoglobin in January 2024 was 12.8.
--- NOTE | 2025-05-12 10:01 | A.OFFPC_ITS ---
Vital Signs 05/12/25 10:05 Height 5 ft 3 in Weight 191 lb BMI 33.8 BP 148/76 H Blood Pressure Location Lt brachial Position Sitting Respiration 18 Pulse 71 Pulse Source Pulse Oximeter Pulse Oximetry (%) 98 Oxygen Delivery Method Room Air Intake Visit Reasons: Left hip pain Whale Fisherman Required: No Accompanied by: Self / Same As Patient Allergies aspirin Adverse Reaction (Severe, Verified 05/12/25 10:01) bleeding in stomach Tobacco use date assessed: 01/14/25 Dental Screening Dental Screen Date: 01/14/25 HPI HPI Comments History of Present Illness Details The patient is a 69-year-old female presenting with chronic pain predominantly located in the leg, radiating to the hip when walking or standing. The pain is described as sharp, aron to being hit hard or having a rat through the bone, and travels upwards. She notes that it is aggravated by weight-bearing activities and has been persistent despite past imaging showing a normal pelvis. The patient's history includes arthritis in the spine and prior fractures, which have exacerbated due to compensatory actions resulting from previous injuries. Despite having x-rays in the past, no new imaging has been conducted recently. She is concerned about ongoing pain and wishes to revisit orthopedics given the persistent discomfort. Additionally, she reports challenges with constipation and concern about escalating her current regimen with oral iron supplements due to iron deficiency anemia recently diagnosed. The patient experiences anxiety, often in conjunction with family-related stress, resulting in physical manifestations such as hyperventilation and shaking. Despite being on medications like Amlodipine for hypertension, recent hypertension episodes have coincided with missed doses attributed to increased morning stress due to family responsibilities. Her blood pressure was high during this visit due to the stress associated with managing a grandchild. She also manages dyslipidemia with Atorvastatin and hypothyroidism with Levothyroxine, both conditions necessitating ongoing treatment and monitoring. Medical History: - Essential Hypertension - Osteoarthritis - Dyslipidemia - Hypothyroidism - Iron Deficiency Anemia Medications: - Amlodipine 2.5 mg daily for hypertensi on - Hydrochlorothiazide 25 mg daily for hy pertension - Irbesartan 300 mg once daily for hyper tension - Atorvastatin for dyslipidemia - Levothyroxine 25 mcg daily for hypothy roidism Diagnostic Results: - Labs: Recent blood work revealed low i bella levels. - Tests and Diagnostics: Past x-ray of danielle paris indicated normal findings. Social: - The patient recently moved from [facility] and currently is handling challenges related to raising a grandchild. - She experiences significant stress whi ch affects her blood pressure control and dietary habits. - The patient has recently been consumin g a diet high in green leafy vegetables in an effort to increase nutritional intake. [facility] Medical History (Updated 05/12/25 @ 10:26 by Yong Damon MD) Iron (Fe) deficiency anemia Hyperlipidemia Hypothyroidism Essential hypertension Osteoarthritis Surgical History History of colonoscopy (~07/15/14) Family History (Updated 01/14/25 @ 09:42 by Charley Flood MA) Mother No problems noted. Father No problems noted. 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 Mann Rayo, Kirsten Fry, Gavin Kennedy and colleagues, with an educational júnior from [employer]. Review of Systems Const Details: - Musculoskeletal: Reports sharp, radiating leg pain to the hip. - Gastrointestinal: Denies nausea and vomiting; reports constipation. - Endocrine: Reports low energy levels. - Psychiatric: Reports anxiety associated with family stress. All systems reviewed & are unremarkable except as reviewed in HPI and above Physical exam (Primary Care) Vital Signs: Last Vital Signs Pulse 71 05/12/25 10:05 Resp 18 05/12/25 10:05 BP 148/76 H 05/12/25 10:05 Pulse Ox 98 05/12/25 10:05 Oxygen Delivery Method Room Air 05/12/25 10:05 BMI result Body Mass Index 33.8 Tobacco/Smoking Status: Tobacco use Status Tobacco use date assessed 01/14/25 05/12/25 10:09 Patient Tobacco Use Status Former Tobacco user 05/12/25 10:09 e-Cigarette/Vaping Use Former Use 05/12/25 10:09 Thrive Assessment: Date of Thrive Assessment Date Thrive assessed 01/14/25 05/12/25 10:09 Const Other: General: Alert and oriented, Well nourished, No acute distress. Eye: Pupils are equal, round and reactive to light, Intact accommodation, Extraocular movements are intact, Normal conjunctiva, Vision unchanged. HENT: Normocephalic, Atraumatic, Tympanic membranes are clear, Normal hearing, Oral mucosa is moist, No pharyngeal erythema, Ear canals patent. Respiratory: Lungs CTA bilaterally, No wheeze, Respirations are non-labored. Cardiovascular: Regular rate, Regular rhythm, S1 auscultated, S2 auscultated, No murmur, Good pulses equal in all extremities, Normal peripheral perfusion, No edema. Gastrointestinal: Soft, Non-tender, Non-distended, Normal bowel sounds, No organ omegaly. Musculoskeletal: Normal range of motion, Normal strength, No tenderness, No swelling, No deformity, Normal gait. Knees are clicking. Integumentary: Warm, Dry, [place], Intact. Neurologic: Alert, Oriented, Normal sensory, Normal motor function, No focal defects, Cranial Nerves II-XII are grossly intact, Normal deep tendon reflexes. Psychiatric: Cooperative, Appropriate mood & affect, Normal judgment. Reports stress and anxiety, hyperventilation, and shaking due to stress. Coding Level of Care Code Est Pt Level 4 (28973) Complex EM visit Add On G2211 Diagnoses Essential hypertension I10 Hypothyroidism, unspecified type E03.9 Hypothyroidism type: unspecified Osteoarthritis, unspecified osteoarthritis type, unspecified site M19.90 Osteoarthritis location: unspecified site Osteoarthritis type: unspecified Hyperlipidemia, unspecified hyperlipidemia type E78.5 Hyperlipidemia type: unspecified Other iron deficiency anemia D50.8 Iron deficiency anemia type: other iron deficiency Assessment & Plan Assessment & Plan (1) Essential hypertension: Comment: - Reinforce adherence to current hypertension medications. - Monitoring of blood pressure at home, awareness of stress-related fluctuations. Code(s): I10 - Essential (primary) hypertension Category: Medical (2) Hypothyroidism: Comment: - Ongoing levothyroxine, further TSH level testing during follow-ups. - Discussed lifelong requirement of thyroid hormone replacement. Code(s): E03.9 - Hypothyroidism, unspecified Category: Medical Qualifiers: Hypothyroidism type: unspecified Qualified Code(s): E03.9 - Hyp othyroidism, unspecified (3) Osteoarthritis: Comment: - Referral to orthopedics for evaluation and management. - Ordered x-rays of hip and knee for updated assessment. - Worsening pain on ambulation Code(s): M19.90 - Unspecified osteoarthritis, unspecified site Category: Medical Qualifiers: Osteoarthritis location: unspecified site Osteoarthritis type: unspecified Qualified Code(s): M19.90 - Unspecified osteoarthritis, unspecified site (4) Hyperlipidemia: Comment: - Continue atorvastatin therapy; discussed dietary modifications and lifestyle changes. Code(s): E78.5 - Hyperlipidemia, unspecified Category: Medical Qualifiers: Hyperlipidemia type: unspecified Qualified Code(s): E78.5 - Hyperlipidemia, unspecified (5) Iron (Fe) deficiency anemia: Comment: - Plan to begin IV iron infusions weekly to avoid exacerbating constipation. (Iron levels very low on blood work in april) - Patient instructed to continue dietary intake of iron-rich foods. - WIll try to make arragnements Code(s): D50.9 - Iron deficiency anemia, unspecified Category: Medical Qualifiers: Iron deficiency anemia type: other iron deficiency Qualified Code(s): D50.8 - Other iron deficiency anemias Plan: Health Maintenance: - Encouraged a diet rich in green leafy vegetables. - Discussed continued monitoring of blood pressure and cholesterol. - Scheduled upcoming colonoscopy. - Discussed strategies to support weight management and stress reduction. Plan During the visit, we discussed the patient's chronic pain and necessity of updating imaging studies. I reinforced the importance of regular follow-up with orthopedics and kyd-ingzaiasnj-yryhz pain management strategies. We reviewed her hypertension management and the impact of stress, with emphasis on regular medication adherence. Given her recent iron deficiency anemia diagnosis, IV iron therapy was proposed to prevent further constipation. We also covered her thyroid condition and dyslipidemia management, highlighting the need for consistent medication. Finally, we acknowledged her family-induced stress and explored basic stress management techniques, verbalizing the impact on her physical health and ways to address anxiety without medication. Orders: Orders XR hip BI w PEL1V Today M1 - Unspecified osteoarthritis, unspecified site XR Knee Barrett 3V Today M1 - Unspecified osteoarthritis, unspecified site Referrals Orthopedics Referral M1 - Unspecified osteoarthritis, unspecified site Patient Instructions: - Take all prescribed medications daily as per instructions. - Continue monitoring your blood pressure regularly at home. - Manage stress through relaxation techniques and seek support when needed. - Attend scheduled follow-up and colonoscopy appointments. - Increase intake of iron-rich foods like green leafy vegetables. - Expect to start IV iron treatments; further information will be provided regarding the procedure.
[2025-05-12 10:05] VITALS: BP 148/76; PULSE 71; RESP 18; O2SAT 98; BMI 33.8
--- OUTSIDE RECORDS SUMMARY | 2025-05-12 12:59 | XMS_ITS | Clinical Summary ---
Author Organization [employer] Address [address] [place] [address] [address] [place] [address] Care Team Providers Care Drafter Castings Name Role Phone Unavailable Primary Care Provider [...] patient's age to complete this topic Insurance [facility] STANDARD
--- OUTSIDE RECORDS SUMMARY | 2025-05-12 12:59 | XMS_ITS | Patient Health Record ---
Author Organization [facility] Address [address] [place] [address] Care Team Providers Care Center Line Cutter Operator Name Role Phone JOSE PRETTY Primary Care Provider Mann Rowe [phone] Allergies Allergen (clinical drug ingredient) Drug/Non Drug Allergy documented on EMR Reaction Allergy Type Onset Date Status aspirin Aspirin stomach upset Drug Allergy Act oli Results Component Value Reference Range Notes Ferritin (Not yet reviewed b y provider) Interpretation: Performing Lab:[facility], [address] [place] [phone] Notes/Report: Ferritin 10 10-250 ng/mL Vitamin B12 and Folate (Not yet reviewed by provider) Interpretation: Performing Lab:[facility], [address] [place] [phone] Notes/Report: Vitamin B12 253 200-900 pg/mL NORMAL 200-900 PG/ML INDETERMINATE 160-199 PG/ML DEFICIENT < 160 PG/ML Folate 9.5 > or = 4.0 ng/mL Reference Values: > or = 4.0 ng/mL < 4.0 ng/mL suggests folate deficiency Methotrexate, aminopterin and folinic acid (leucovorin) are chemotherapeutic agents whose molecular structures are similar to folate; therefore, the [employer] folate assay cannot be used for patients using these drugs. Complete Blood Count Auto Di ff (Not yet reviewed by provider) Interpretation: Performing Lab:[facility], [address] [place] [phone] Notes/Report: White Blood Count 6.8 4.8-10.8 X10*3/uL [...] yet review ed by provider) Interpretation: Performing Lab:[facility], [address] [place] [phone] Notes/Report: Iron 23 30-160 mcg/dL Total Iron [...] Status Risk Notes Problem Colon cancer screening (142705173) Colon cancer screening (Z12.11) Active confirmed Problem Dysphagia (36363659) Dysphagia (R13.10) Active confirmed Problem Preprocedural examination (016309502464524) Preprocedural examination (Z01.818) Active confirmed Problem Anemia (737748908) Anemia (D64.9) Active confirmed Vital Signs Temperature 96.2 degrees Fahrenheit 05/05/2025 Blood pressure diastolic 01 mm Hg 05/05/2025 Height 63 in 05/05/2025 Blood pressure systolic 001 mm Hg 05/05/2025 Weight 194.0 lbs 05/05/2025 BMI 34.36 kg/m2 05/05/2025 Procedures Procedure Date Ordered Date Performed Result Body Sit e UPPER GI ENDOSCOPY 05/05/2025 N/A COLONOSCOPY 05/05/2025 N/A Encounters Encounter Location Date Provider Diagnosis [facility] [address] [place] [phone] 05/05/2025 Mann Villafana Colon cancer screeni ng Z12.11 ; Preprocedural examination Z01.818 ; Dysphagia R13.10 and Anemia D64.9 [facility] [address] [place] [phone] 05/05/2025 Mann Villafana [facility] [address] [place] [phone] 05/05/2025 Mann Villafana Assessments Encounter Date Diagnosis [...] Provider Name:Mann Villafana , 08/10/2025 10:40:00 AM, [address] [place] [address] , [place], [place], [phone], Insurance Providers Payer Name Payer Address Payer Phone Subscriber Number Group Number Insured Name Patient Relationship to Insured Coverage Start Date Coverage End Date [employer] [employer] [facility] [address] [place] [phone] [id number] ELVIRA MATA Self - patient is the insured Medical (General) History Medical History History ICD Code Arthritis HTN Gastirc ulcers---describes u pper endos--most recent one was in [address] Kwabena Hines and is described as negative. She did have duodenal biopsies but I do not have those results. IBS Denies [place],DM,CVA,Lung disease,renal dise ase Hypothyroidism Negative colonoscopy in [address] [place] [address] Kwabena Hines. She had previous negative colonoscopies as well. Her colonoscopy report from 2014 describes no abnormalities and colon biopsies were done to rule out underlying microscopic colitis, but I do not have the results of that pathology.
== END 2025-05-12 10:32 | disposition home or self-care (01) ==
LOC: HO.HMCHD 10:01
PROVIDERS: PCP Internal Medicine; Visit Provider Student in an Organized Health Care Education/Training Program
DX: I10 Essential (primary) hypertension (principal); E03.9 Hypothyroidism, unspecified; E78.5 Hyperlipidemia, unspecified; D50.8 Other iron deficiency anemias; M19.90 Unspecified osteoarthritis, unspecified site

== ENCOUNTER 2025-06-03 07:59 | Outpatient (REF) | payer OTHER, SELFPAY ==
--- NOTE | ~2025-06-03 | XR_ITS ---
EXAMINATION: XR HIP 1 VIEW LEFT WITH PELVIS HISTORY: M25.552 - Pain in left hip COMPARISON: Comparison is made with the prior examination of the pelvis dated 01/09/2024. FINDINGS: A single AP view of the pelvis and two views of the left hip are submitted. Osseous mineralization is normal. There is no fracture or dislocation. There is mild osteoarthritis of the left hip with joint space narrowing and osteophyte formation. There is degenerative disc disease of the lower lumbar spine. The soft tissues are unremarkable. XR/XR hip LT w PEL1V IMPRESSION: Mild osteoarthritis of the left hip. Electronically signed by: Mann Hickey MD 06/03/2025 08:58 AM EDT
--- NOTE | ~2025-06-03 | XR_ITS ---
EXAMINATION: XR KNEE, LEFT CLINICAL INFORMATION: M25.562 - Pain in left knee COMPARISON: None available. TECHNIQUE: Four views of the left knee. FINDINGS: No visible acute fracture or dislocation. No significant effusion. Medial compartment small marginal spur. Mild patellofemoral joint space narrowing. No worrisome lytic or blastic lesion. No abnormal soft tissue calcification. XR/XR knee LT 4V IMPRESSION: Mild arthritis as above. No radiographic evidence of acute osseous findings. Electronically signed by: Farooq Salazar MD 06/03/2025 09:02 AM EDT
== END 2025-06-03 08:00 | disposition home or self-care (01) ==
LOC: HO.HMGCX 07:59
PROVIDERS: Absent Provider Student in an Organized Health Care Education/Training Program; PCP Student in an Organized Health Care Education/Training Program; Visit Provider Physician Assistant
DX: M25.552 Pain in left hip (principal)
CPT/HCPCS: 73502; 73564; 99212

== ENCOUNTER 2025-06-03 07:59 | Outpatient (AMB) | payer OTHER, SELFPAY ==
[2025-06-03 08:06] VITALS: BP 160/100; PULSE 62; RESP 16; TEMP 36.9; O2SAT 96; BMI 33.5
--- NOTE | 2025-06-03 08:06 | AM.OFFWIN_ITS ---
Intake Vital Signs 06/03/25 08:06 Height 5 ft 3 in Weight 189 lb BMI 33.5 BP 160/100 H Blood Pressure Location Rt brachial Position Sitting Respiration 16 Pulse 62 Pulse Source Pulse Oximeter Temp 98.4 F Temp Source Oral Pulse Oximetry (%) 96 Oxygen Delivery Method Room Air Intake Visit Reasons: EP-lt pain of hip running down the entire leg Intake Note: Pt is here today c/o Lt hip pain down Lt leg: No injury noted Patient Tobacco Use Status: Former Tobacco user Allergies aspirin Adverse Reaction (Severe, Verified 05/12/25 10:01) bleeding in stomach HPI HPI Comments History of Present Illness Details History - The patient is a 67-year-old female pr esenting with left hip and left leg pain. - Reports chronic knee issues with recen t pain extending from the hip to the foot, causing discomfort and sleep disturbances. - Describes pain as sharp and shooting, exacerbated by walking, leading to difficulty bearing weight. - Denies weakness, numbness or tingling in the left leg. Denies loss of control of bladder or bowels. - Consulted primary care physician; orth opedic appointment delayed until next year. - History of knee fracture, not surgical ly treated, concerned about relation to current symptoms. - Experienced gastrointestinal bleeding in the past, cautious with NSAID use, scheduled for colonoscopy and endoscopy due to low hemoglobin and iron levels. - Has had sciatica before and this does not feel like that. Physical Exam General: cooperative, healthy appearing and comfortable, patient oriented x3 Head: Yes normal to inspection and Yes normocephalic General nose exam: Normal external nose present Face and sinus: Yes normal facial exam Effort & Inspection: normal respiratory effort and able to speak in complete sentences Back/spine: no CVA tenderness bilaterally cervical, thoracic and lumbar spine normal to inspection cervical ROM normal, thoracic ROM normal, lumbar ROM normal no Cervical, thoracic or lumbar spine tenderness Extremities: Straight leg raise test negative on left Review of Systems - Musculoskeletal: Reports sharp, shooti ng pain from hip to foot, exacerbated by walking, denies weakness, numbness, or tingling - Gastrointestinal: Denies current gastr ointestinal symptoms, but has history of gastrointestinal bleeding - Neurological: Denies loss of bladder o r bowel control All systems reviewed and are unremarkable except as noted in HPI [facility] Medical History (Updated 06/03/25 @ 08:23 by Griselda Jarvis PA-C) Iron (Fe) deficiency anemia Hyperlipidemia Hypothyroidism Essential hypertension Osteoarthritis Surgical History History of colonoscopy (~07/15/14) Family History (Updated 01/14/25 @ 09:42 by Charley Flood MA) Mother No problems noted. Father No problems noted. 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 - Recommended x-ray of the left hip to rule out any acute changes or new pathology. - Sent referral for physical therapy to address musculoskeletal pain of left hip and improve mobility. - Patient to follow up with home staging specialist as scheduled, with consideration for earlier appointment if possible. Patient was informed and verbally consented to the use of an ambient scribe for clinic note documentation during this visit. Orders: Orders XR hip LT w PEL1V Today M25.552 - Pain in left hip PT Evaluation and Treatment Today M25.552 - Pain in left hip Medications: New diclofenac sodium 50 mg PO Q12H PRN 7 tabs 0RF pain Coding Level of Care Code Est Pt Level 4 (60466) Diagnoses Left hip pain M25.552
== END 2025-06-03 08:37 | disposition home or self-care (01) ==
PROVIDERS: PCP Student in an Organized Health Care Education/Training Program; Visit Provider Physician Assistant
DX: M25.552 Pain in left hip (principal)

== ENCOUNTER → 2025-06-03 08:37 | Outpatient (BNV) | payer OTHER, SELFPAY | PROVIDERS: Absent Provider Student in an Organized Health Care Education/Training Program; PCP Student in an Organized Health Care Education/Training Program; Visit Provider Radiology Diagnostic Radiology | DX: M25.562 Pain in left knee (principal); M25.552 Pain in left hip; M17.12 Unilateral primary osteoarthritis, left knee; M16.12 Unilateral primary osteoarthritis, left hip | CPT/HCPCS: 73502; 73564 ==

== ENCOUNTER 2025-06-11 10:59 | Day surgery (SDC) | payer OTHER, SELFPAY ==
--- OUTSIDE RECORDS SUMMARY | 2025-05-25 09:35 | XMS_ITS | Clinical Summary ---
Author Organization [employer] Address [address] [place] [address] [address] [place] [address] Care Team Providers Care Grill Cook Name Role Phone Unavailable Primary Care Provider [...] patient's age to complete this topic Insurance [facility] STANDARD
--- OUTSIDE RECORDS SUMMARY | 2025-05-25 09:35 | XMS_ITS | Patient Health Record ---
Author Organization [facility] Address [address] [place] [address] Care Team Providers Care Senior Health Physics Technician Name Role Phone SUKHWINDER, JOSE Primary Care Provider Mann Rowe [phone] Allergies Allergen (clinical drug ingredient) Drug/Non Drug Allergy documented on EMR Reaction Allergy Type Onset Date Status aspirin Aspirin stomach upset Drug Allergy Act oli Results Component Value Reference Range Notes Ferritin Reviewed date:05/24/2025 12:30:31 AM Interpretation: Performing Lab:[facility], [address] [place] [phone] Notes/Report: Ferritin 10 10-250 ng/mL Vitamin B12 and Folate Reviewed date:05/24/2025 12:30:09 AM Interpretation: Performing Lab:[facility], [address] [place] [phone] Notes/Report: Vitamin B12 253 200-900 pg/mL NORMAL 200-900 PG/ML INDETERMINATE 160-199 PG/ML DEFICIENT < 160 PG/ML Folate 9.5 > or = 4.0 ng/mL Reference Values: > or = 4.0 ng/mL < 4.0 ng/mL suggests folate deficiency Methotrexate, aminopterin and folinic acid (leucovorin) are chemotherapeutic agents whose molecular structures are similar to folate; therefore, the [employer] folate assay cannot be used for patients using these drugs. Complete Blood Count Auto Di ff Reviewed date:05/24/2025 12:31:00 AM Interpretation: Performing Lab:[facility], [address] [place] [phone] Notes/Report: White Blood Count 6.8 4.8-10.8 X10*3/uL [...] Abs Auto 0.000 0.0-0.012 X10*3/uL IRON PROFILE Reviewed date:05/24/2025 12:30:46 AM Interpretation: Performing Lab:[facility], [address] [place] [phone] Notes/Report: Iron 23 30-160 mcg/dL Total Iron [...] Status Risk Notes Problem Colon cancer screening (647954667) Colon cancer screening (Z12.11) Active confirmed Problem Dysphagia (66712224) Dysphagia (R13.10) Active confirmed Problem Preprocedural examination (785401739575844) Preprocedural examination (Z01.818) Active confirmed Problem Anemia (544456156) Anemia (D64.9) Active confirmed Vital Signs Temperature 96.2 degrees Fahrenheit 05/05/2025 Blood pressure diastolic 01 mm Hg 05/05/2025 Height 63 in 05/05/2025 Blood pressure systolic 001 mm Hg 05/05/2025 Weight 194.0 lbs 05/05/2025 BMI 34.36 kg/m2 05/05/2025 Procedures Procedure Date Ordered Date Performed Result Body Sit e UPPER GI ENDOSCOPY 05/05/2025 N/A COLONOSCOPY 05/05/2025 N/A Encounters Encounter Location Date Provider Diagnosis [facility] [place] [address] [place] [phone] 05/05/2025 Mann Villafana Colon cancer screeni ng Z12.11 ; Anemia D64.9 ; Preprocedural examination Z01.818 and Dysphagia R13.10 [facility] [address] [place] [phone] 05/05/2025 Mann Villafana [facility] [address] [place] [phone] 05/05/2025 Mann Villafana [facility] [address] [place] [phone] 05/24/2025 Mann Villafana Assessments Encounter Date Diagnosis (ICD [...] IBC (FE) 05/05/2025 CBC w DIFF 05/05/2025 Next Appt Details Provider Name:Mann Louise Villafana , 06/11/2025 02:00:00 PM, [address] [place] [address] , [place], [place], [id number], Insurance Providers Payer Name Payer Address Payer Phone Subscriber Number Group Number Insured Name Patient Relationship to Insured Coverage Start Date Coverage End Date [employer] [address] SELAM AGUILAR [phone] [id number] ELVIRA MATA Self - patient is the insured Medical (General) History Medical History History ICD Code Arthritis HTN Gastirc ulcers---describes u pper endos--most recent one was in [address] Kwabena Hines and is described as negative. She did have duodenal biopsies but I do not have those results. IBS Denies [place],DM,CVA,Lung disease,renal dise ase Hypothyroidism Negative colonoscopy in [address] [place] [address] Kwabena Hines. She had previous negative colonoscopies as well. Her colonoscopy report from 2014 describes no abnormalities and colon biopsies were done to rule out underlying microscopic colitis, but I do not have the results of that pathology.
[2025-06-05 16:02] VITALS: BMI 34.4
--- NOTE | 2025-06-09 10:37 | HO.ANESPROP2 ---
Documented by User: Yamilka Loyola NP 06/09/25 10:38 HPI - Anesthesia Eval Consult details Narrative: 69yo F for Upper Endoscopy and Colonoscopy PMFSH Active Problems Active Problems: All Active Problems Left knee pain (Acute) Left hip pain (Acute) Pain of left thumb (Acute) Mass of skin of left thumb (Acute) Iron (Fe) deficiency anemia (Acute) Hyperlipidemia (Acute) Hypothyroidism (Acute) Essential hypertension (Acute) Osteoarthritis (Acute) Past Medical History Medical History IBS (irritable bowel syndrome) Iron (Fe) deficiency anemia Hyperlipidemia Hypothyroidism Essential hypertension Osteoarthritis Family History Family History (Updated 01/14/25 @ 09:42 by Charley Flood MA) Mother No problems noted. Father No problems noted. 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 Cognitive needs: No Hearing needs: No Vision needs: Yes (rx glasses) Meds Allergies Allergy/AdvReac Type Severity Reaction Status Date / Time aspirin AdvReac Severe bleeding Verified 06/11/25 11:55 in stomach Home Medications ?Medication ?Instructions ?Recorded ?Confirmed ?Last Taken ?Type amlodipine 2.5 mg tablet 2.5 mg PO DAILY 09/25/23 06/05/25 Unknown History ergocalciferol (vitamin D2) 1,250 1,250 mcg PO QWEEK 09/25/23 06/05/25 Unknown History mcg (50,000 unit) capsule (Vitamin D2) blood sugar diagnostic (OneTouch #10 ea 05/12/25 05/14/25 Unknown History Verio test strips) cyclobenzaprine 10 mg tablet 10 mg PO BEDTIME PRN Muscle Spasm 05/12/25 06/05/25 Unknown History lancets 30 gauge (OneTouch Delarun #100 ea 05/12/25 05/14/25 Unknown History Plus Lancet) syringe with needle 1 mL 25 gauge #50 ea 05/12/25 05/14/25 Unknown History x 01/01 (BD Tuberculin Syringe) Exam Height,Weight and Vital Signs: Height 5 ft 3 in Weight 87.997 kg Assessment and Plan Assessment Anesthesia Assessment: Chart Reviewed Documented by User: Debra Steinberg MD 06/11/25 11:57 [facility] Past Medical History Medical History IBS (irritable bowel syndrome) Iron (Fe) deficiency anemia Hyperlipidemia Hypothyroidism Essential hypertension Osteoarthritis Family History Family History (Updated 01/14/25 @ 09:42 by Charley Flood MA) Mother No problems noted. Father No problems noted. 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 Cognitive needs: No Hearing needs: No Vision needs: Yes (rx glasses) Meds Allergies Allergy/AdvReac Type Severity Reaction Status Date / Time aspirin AdvReac Severe bleeding Verified 06/11/25 11:55 in stomach Home Medications ?Medication ?Instructions ?Recorded ?Confirmed ?Last Taken ?Type amlodipine 2.5 mg tablet 2.5 mg PO DAILY 09/25/23 06/05/25 Unknown History ergocalciferol (vitamin D2) 1,250 1,250 mcg PO QWEEK 09/25/23 06/05/25 Unknown History mcg (50,000 unit) capsule (Vitamin D2) blood sugar diagnostic (OneTouch #10 ea 05/12/25 05/14/25 Unknown History Verio test strips) cyclobenzaprine 10 mg tablet 10 mg PO BEDTIME PRN Muscle Spasm 05/12/25 06/05/25 Unknown History lancets 30 gauge (OneTouch Delica #100 ea 05/12/25 05/14/25 Unknown History Plus Lancet) syringe with needle 1 mL 25 gauge #50 ea 05/12/25 05/14/25 Unknown History x 5/8 (BD Tuberculin Syringe) Exam Airway Mallampati Class: III TM Dist: >3cm Neck ROM: Full Partial: Upper (one tooth partial on top) Heart: rrr Lungs: cta Assessment and Plan Assessment Anesthesia Assessment: Anesthesia Plan Discussed Final Anesthetic Review Family History of Problems with Anesthesia: No History of Problems with Anesthesia: No NPO: Yes ASA Class: II Final Preanesthetic Review: No Changes in Pt Med Stat, Meds/Allgs Chart Reviewed and Consent Obtained/Reviewed Patient Risk: Low Procedure Risk: Intermediate Anesthetic Plan Anesthetic Plan: MAC: Disposition: Standard PACU
[2025-06-11 11:56] VITALS: BMI 33.3
[2025-06-11] MEDS: Lactated Ringers 1,000 ML 100 ML IVCONT (12:11)
[2025-06-11 12:18] VITALS: BP 138/67; PULSE 72; RESP 18; TEMP 36.8; O2SAT 97
[2025-06-11 14:55] VITALS: BP 114/63; PULSE 55; RESP 16; TEMP 36.9; O2SAT 97
[2025-06-11 15:10] VITALS: BP 122/70; PULSE 58; RESP 16; TEMP 36.1; O2SAT 99
--- NOTE | 2025-06-11 15:11 | P.BOP_ITS ---
Brief Operative Note Date of Service: 06/11/25 Pre-op diagnosis: Anemia, Screening Post-op diagnosis: other (Gastritis, Gastric polyp, Hiatal hernia, GERD, Diverticulosis) Procedure: EGD with biopsies, Colonoscopy to the cecum and TI Surgeon: Mann Villafana MD Anesthesia: MAC Was an Mortgage Servicing Specialist used for this Procedure?: No Estimated blood loss (mL): 2.0 Pathology: other (A. 2nd/3rd portions of duodenum B. Gastric antrum C. Gastric polyp D. EG Junction at 35cm) Condition: stable Disposition: PACU
--- NOTE | 2025-06-12 00:39 | OP_ITS ---
DATE OF SERVICE: 06/11/2025 SURGEON: Mann Villafana MD INDICATIONS: The patient presents for evaluation of anemia and colorectal cancer screening. Full consent has been obtained from her for this, including risks of bleeding and perforation. PREOPERATIVE DIAGNOSIS: Iron deficiency anemia. POSTOPERATIVE DIAGNOSIS: PROCEDURE PERFORMED: Esophagogastroduodenoscopy with biopsies, and colonoscopy to the cecum and terminal ileum. ESTIMATED BLOOD LOSS: COMPLICATIONS: ANESTHESIA: Medication used, monitored anesthesia care. ASSISTANTS: SPECIMENS: POSTOPERATIVE DIAGNOSES: Iron deficiency anemia, hiatal hernia, gastroesophageal reflux, gastritis and gastric polyp, diverticulosis, and internal hemorrhoids. DESCRIPTION OF PROCEDURE: The patient was placed in the left lateral decubitus position. The Olympus video gastroscope was passed in the posterior oropharynx and upper esophagus under direct vision. The scope was passed slowly to the distal esophagus. The gastroesophageal junction appeared at 38 cm. There was some slight irregularity at this level consistent with reflux and possible small areas of Colón's mucosa. There was no evidence of any esophagitis nor any lesions. There was no sign of any stricture, although the distal esophagus was somewhat tortuous. The scope easily entered the stomach. There was a small hiatal hernia. The scope was advanced to the pylorus and the duodenum was cannulated to the descending portion. The duodenum including the bulb appeared normal without mass or ulceration. Biopsies were obtained from the 2nd and 3rd portions of duodenum. The scope was withdrawn back to the stomach. The gastric antrum and body had some minimal areas of erythema and edema, but no erosions or ulceration. There was good peristalsis. The scope was retroflexed visualizing the proximal stomach carefully, which appeared normal, without mass or ulceration, although there was an approximately 10 mm polyp in the proximal stomach. The proximal stomach did have some scarring and somewhat limited distensibility, but no other mucosal abnormalities were noted. Multiple biopsies were obtained from the gastric polyp. I also obtained biopsies from the gastric antrum. The scope was withdrawn back into the esophagus. Biopsies were obtained at the EG junction at 38 cm. Proximal to this, the esophageal mucosa appeared normal. Again the distal esophagus was somewhat tortuous. There was no sign of any esophageal stricture or esophageal ring. The scope was withdrawn from the patient. She was turned around for the colonoscopy. The digital rectal exam revealed no abnormalities. The Olympus video pediatric colonoscope was entered into the rectum and advanced to the cecum. Advancement to the cecum was difficult. It did require abdominal wall pressure. However, once in the cecum I did identify normal-appearing cecal pouch with appendiceal orifice and a normal-appearing ileocecal valve. The terminal ileum was cannulated and appeared normal. The scope was withdrawn back in the colon. The entire cecum and ileocecal valve appeared normal. The scope was slowly withdrawn assessing all mucosal surfaces carefully. Preparation was excellent. I did not visualize any sign of polyps, colitis, nor angiodysplasia. There was a mild amount of sigmoid diverticulosis. In the rectum the scope was retroflexed visualizing internal hemorrhoids, but no other pathology. The rectal mucosa appeared normal. The scope was straightened and withdrawn from the patient. She tolerated both procedures well and was returned to the recovery area in stable condition. IMPRESSION: 1. Hiatal hernia, gastroesophageal reflux, rule out Colón's esophagus. 2. Gastritis. 3. Gastric polyp. 4. Rule out celiac disease. 5. Diverticulosis. 6. Internal hemorrhoids. PLAN: The results of the pathology will be checked. Given the upper endoscopy findings, I shall start her on omeprazole 20 mg daily. She has been advised to not use any aspirin nor NSAIDs for 1 week, but to try to avoid them long-term given the findings in the upper GI tract. Given the negative colonoscopy, I would recommend a repeat colonoscopy in 10 years for further screening. She will also be instructed to start some iron on a daily basis in regard to the anemia. Her most recent labs on May 11 showed a hemoglobin of 10.9 with MCV of 76 compared to a hemoglobin of 11.5 and MCV of 79 in September. Her B12 and folate were normal. She did have a low ferritin of 10 and a low iron saturation of 6% along with an iron level of 23. She will be seen in followup as well. Depending upon her clinical course, I may want to have her undergo a small bowel capsule study. If H pylori is present in the gastric biopsies, we would consider treating that as well. If the gastric polyp happens to be adenomatous she would need a follow up upper endoscopy to remove it completely. MD [facility]MARYSE / [phone] WARD
== END 2025-06-11 15:39 | disposition home or self-care (01) ==
PROVIDERS: PCP Student in an Organized Health Care Education/Training Program; Visit Provider Internal Medicine
PROC: (CPT 43239; principal; 2025-06-11 13:10)
DX: Z12.11 Encounter for screening for malignant neoplasm of colon (principal); K57.30 Diverticulosis of large intestine without perforation or abscess without bleeding; K64.8 Other hemorrhoids; K58.9 Irritable bowel syndrome, unspecified; R13.10 Dysphagia, unspecified; K21.9 Gastro-esophageal reflux disease without esophagitis; Z80.0 Family history of malignant neoplasm of digestive organs; K31.7 Polyp of stomach and duodenum; K29.70 Gastritis, unspecified, without bleeding; Z79.899 Other long term (current) drug therapy; K31.A0 Gastric intestinal metaplasia, unspecified; D50.9 Iron deficiency anemia, unspecified; K44.9 Diaphragmatic hernia without obstruction or gangrene; I10 Essential (primary) hypertension; E03.9 Hypothyroidism, unspecified; Z79.1 Long term (current) use of non-steroidal anti-inflammatories (NSAID); Z87.11 Personal history of peptic ulcer disease
CPT/HCPCS: 43239; G0121; 88305; 88313; 88342; J2003; J2704

== ENCOUNTER 2025-07-17 09:48 | Outpatient (AMB) | payer OTHER, SELFPAY ==
--- OUTSIDE RECORDS SUMMARY | 2025-06-11 08:00 | XMS_ITS ---
Author Organization [facility] Address [address] [place] [address] Care Team Providers Care Client Services Account Manager Name Role Phone SUKHWINDER, JOSE Primary Care Provider Mann Rowe [phone] REASON FOR VISIT screening,dysphagia Medications Medication SIG (Take, Route, Frequency, Duration) Notes Start Date End Date Status MiraLax (colon prep) 17 GM/SCOOP Powder 1 238 GM bottle mixed with Gatorade or Crystal Light orally begin at 5:00 p.m. the day before the procedure; Duration: 1 days 05/26/2025 Active amLODIPine Besylate 2.5 MG Tablet 1 tablet Orally Once a day Active Dulcolax (colon prep) 5 MG Tablet Delayed Release take 2 at 3:00 p.m and 2 at 7:00p.m. the day before the colonoscopy Orally two tablets twice a day for one day; Duration: 1 days 05/26/2025 Active hydroCHLOROthiazide 25 MG Tablet 1 tablet in the morning Orally Once a day Active Atorvastatin Calcium 20 MG Tablet 1 tablet Orally Once a day Active Naproxen 500 MG Tablet Delay ed Release 1 tablet as needed Orally every 12 hrs Active Vitamin D 125 MCG Capsule 1 capsule Oral ly Once a day Active Loratadine 10 MG Capsule 1 capsule Orall y Once a day Active Levothyroxine Sodium 25 MCG Tablet 1 tablet in the morning on an empty stomach Orally Once a day Active Irbesartan 300 MG Tablet 1 tablet Orally Once a day Active Encounters Encounter Location Date Provider Diagnosis [facility] Out[facility] [address] [facility] [place] [id number] 06/11/2025 Mann Villafana Plan Of Treatment Next Appt Details Provider Name:Mann Villafana , 10/27/2025 09:10:00 AM, [address], [address], [place], [address], Progress Notes * COSME MATADOB: [birth year] (69 yo F)Acc No.[id number]:06/11/2025 EGD and COL/MAC Patient: COSME GORE Provider: Hemalatha Villafana MD :1955 A ge:69 Y S ex:Female Date:06/11/2025 Address:[facility] [address] , [id number] Pcp:JOSE PRETTY Subjective: * Chief Complaints: * S creening,dysphagia * Medications: T akingVitamin D 125 MCG Capsule 1 capsule Orally Once a day Naproxen 500 MG Tablet Delayed Release 1 tablet as needed Orally every 12 hrs Levothyroxine Sodium 25 MCG Tablet 1 tablet in the morning on an empty stomach Orally Once a day Loratadine 10 MG Capsule 1 capsule Orally Once a day Irbesartan 300 MG Tablet 1 tablet Orally Once a day hydroCHLOROthiazide 25 MG Tablet 1 tablet in the morning Orally Once a day Atorvastatin Calcium 20 MG Tablet 1 tablet Orally Once a day amLODIPine Besylate 2.5 MG Tablet 1 tablet Orally Once a day MiraLax (colon prep) 17 GM/SCOOP Powder 1 238 GM bottle mixed with Gatorade or Crystal Light orally begin at 5:00 p.m. the day before the procedure Dulcolax (colon prep) 5 MG Tablet Delayed Release take 2 at 3:00 p.m and 2 at 7:00p.m. the day before the colonoscopy Orally two tablets twice a day for one day Taking Vitamin D 125 MCG Capsule 1 capsule Orally Once a day Taking Naproxen 500 MG Tablet Delayed Release 1 tablet as needed Orally every 12 hrs Taking Levothyroxine Sodium 25 MCG Tablet 1 tablet in the morning on an empty stomach Orally Once a day Taking Loratadine 10 MG Capsule 1 capsule Orally Once a day Taking Irbesartan 300 MG Tablet 1 tablet Orally Once a day Taking hydroCHLOROthiazide 25 MG Tablet 1 tablet in the morning Orally Once a day Taking Atorvastatin Calcium 20 MG Tablet 1 tablet Orally Once a day Taking amLODIPine Besylate 2.5 MG Tablet 1 tablet Orally Once a day Taking MiraLax (colon prep) 17 GM/SCOOP Powder 1 238 GM bottle mixed with Gatorade or Crystal Light orally begin at 5:00 p.m. the day before the procedure Taking Dulcolax (colon prep) 5 MG Tablet Delayed Release take 2 at 3:00 p.m and 2 at 7:00p.m. the day before the colonoscopy Orally two tablets twice a day for one day Billing Information: * Procedure Codes: * The named appointment provid er may or may not be the originator of this progress note, and it is not deemed complete until electronically signed by the appointment provider. Sign off status: Pending * Provider: Hemalatha Villafana MD Date: Generated for Rudy lopez/[employer] on: 09/16/2024 10:27 AM EST
--- OUTSIDE RECORDS SUMMARY | 2025-06-11 14:24 | XMS_ITS ---
Author Organization [facility] Address [address] [place] [address] Care Team Providers Care Resort Manager Name Role Phone JOSE PRETTY Primary Care Provider Mann Rowe [facility] [phone] REASON FOR VISIT Prilosec Rx, ? treat Hpylori and ? needs CT Medications Medication SIG (Take, Route, Frequency, Duration) Notes Start Date End Date Status Prilosec 20 MG Capsule Delayed Release 1 Orally Once a day every morning; Duration: 90 days 06/11/2025 Activ e Problems Problem Type SNOMED Code ICD Code Onset Dates Problem Status W/U Status Risk Notes Problem Iron deficiency anemia (18290797) Iron deficiency anemia (D50.9) Active confirmed Encounters Encounter Location Date Provider Diagnosis [facility] [address] [place] [address] 06/11/2025 Mann Villafana Iron deficiency anemia D50.9 Assessments Encounter Date Diagnosis (ICD Code) Assessment Notes Treatment Notes Treatment Clinical Notes Section Notes 06/11/2025 Iron deficiency anemia (ICD-10 - D50.9) Plan Of Treatment Medication Medication Name Sig Start Date Stop Date Notes Prilosec 20 MG Capsule Delay ed Release 1 Orally Once a day every morning; Duration: 90 days 06/11/2025 Next Appt Details Provider Name:Mann Villafana , 10/27/2025 09:10:00 AM, [address], [address], [place], [address], Progress Notes * COSME MATADOB: [birth year] (69 yo F)Acc No.[id number]:06/11/2025 Patient: COSME GORE :1955 A ge:69 Y S ex:Female Address:[facility] [address] , [place] [address] * Refills Start Prilosec Capsule Delayed Release, 20 MG, Orally, 90, 1, Once a day every morning, 90 days, Refills=3 Subjective: * Chief Complaints: * P rilosec Rx, ? treat Hpylori and ? needs CT Assessment: * Assessment: 1. I bella deficiency anemia - D50.9 (Primary) Plan: * Treatment: * * Date:
[2025-07-17 09:54] VITALS: BP 132/80; PULSE 61; TEMP 36.5; O2SAT 98; BMI 34.0
--- NOTE | 2025-07-17 09:54 | A.OFFPC_ITS ---
Vital Signs 07/17/25 09:54 Height 5 ft 3 in Weight 192 lb BMI 34.0 BP 132/80 Blood Pressure Location Lt brachial Position Sitting Pulse 61 Pulse Source Pulse Oximeter Temp 97.7 F Temp Source Temporal Artery Scan Pulse Oximetry (%) 98 Oxygen Delivery Method Room Air Intake Visit Reasons: F/U Colonoscopy/ Endo/ infusion ? - see comments Window Assembler Required: No Accompanied by: Self / Same As Patient Allergies aspirin Adverse Reaction (Severe, Verified 07/17/25 09:54) bleeding in stomach Tobacco use date assessed: 07/17/25 Fall risk assessment: No Falls in past year Last assessed Fall Risk: 07/17/25 Dental Screening Dental Screen Date: 07/17/25 Did you have a dental visit in the last 12 months?: No Did you have a dental problem in the last 6 months where you did not have access to dental care?: No HPI HPI Comments History of Present Illness Details History of Present Illness The patient is a 69 year old individual presenting for follow-up on chronic conditions, including iron deficiency anemia and medication management. The patient has a history of iron deficiency anemia with iron levels of 23, saturation of 6%, and a hemoglobin of 10.9. An iron infusion was ordered, but the patient has not yet been contacted for scheduling, with potential insurance difficulties noted. A recent colonoscopy was negative for any source of bleeding, though the patient experienced significant post-procedural pain for a week. An upper endoscopy revealed erosive gastritis. The patient has a history of hip pain, which was evaluated at an urgent care center where x-rays were negative and the pain was attributed to arthritis. A brief course of diclofenac provided relief but was discontinued due to the patient's history of gastritis. A referral for physical therapy was made on 06/03, but the patient has been unable to schedule an appointment. The patient's other chronic conditions include hypertension, hyperlipidemia, hypothyroidism, and muscle spasms, which are managed with amlodipine, hydrochlorothiazide, irbesartan, atorvastatin, levothyroxine, and cyclobenzaprine, respectively. The patient also reports intermittent episodes of hypoglycemia, with blood sugar readings dropping as low as 30, despite not being on any medication for diabetes. Medical History: - Iron deficiency anemia - Hypertension - Hyperlipidemia - Hypothyroidism - Erosive gastritis, confirmed by EGD - Arthritis of the hip - Hypoglycemia - Muscle spasms Surgical History: - Upper endoscopy - Colonoscopy, recent Medications: - Amlodipine 2.5 mg for hypertension - Atorvastatin 20 mg for hyperlipidemia - Cyclobenzaprine 10 mg at night for mus mirian spasms - Hydrochlorothiazide 25 mg for hyperten jyoti - Irbesartan 300 mg for hypertension - Levothyroxine 25 mcg for hypothyroidis m - Omeprazole 20 mg for gastritis Family History: - No family history was discussed. Diagnostic Results: - Labs: - Iron: 23 (low) - Iron saturation: 6% (low) - Hemoglobin: 10.9 (low) - Procedures: - Upper endoscopy: Revealed erosive kami ritis. - Colonoscopy: Negative for a source of bleeding. - Imaging: - Hip X-ray: Negative for acute findings , diagnosis of arthritis given. Social History - Nutrition: The patient is trying to co nsume a diet high in iron. - The patient consumes tomatoes, which m ay trigger gastritis. [facility] Medical History (Updated 07/17/25 @ 10:29 by Yong Damon MD) Muscle spasm Hypoglycemia Gastritis IBS (irritable bowel syndrome) Iron (Fe) deficiency anemia Hyperlipidemia Hypothyroidism Essential hypertension Osteoarthritis Surgical History History of colonoscopy (~06/12/25) Family History (Updated 07/17/25 @ 10:00 by Charley Flood MA) Mother No problems noted. Father No problems noted. 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 Mann Rayo, Kirsten Fry, Gavin Kennedy and colleagues, with an educational júnior from [employer]. Review of Systems Narrative Review of Systems - Constitutional: Reports pain affecting sleep. - Gastrointestinal: Reports history of gastritis. - Musculoskeletal: Reports hip pain and muscle spasms. - Endocrine: Reports episodes of hypoglycemia. All systems reviewed & are unremarkable except as reviewed in HPI and above Physical exam (Primary Care) Vital Signs: Last Vital Signs Temp 97.7 F 07/17/25 09:54 Pulse 61 07/17/25 09:54 BP 132/80 07/17/25 09:54 Pulse Ox 98 07/17/25 09:54 Oxygen Delivery Method Room Air 07/17/25 09:54 BMI result Body Mass Index 34.0 Tobacco/Smoking Status: Tobacco use Status Tobacco use date assessed 07/17/25 07/17/25 10:01 Patient Tobacco Use Status Former Tobacco user 07/17/25 10:01 e-Cigarette/Vaping Use Former Use 07/17/25 10:01 Thrive Assessment: Date of Thrive Assessment Date Thrive assessed 01/14/25 07/17/25 10:01 Narrative Physical Exam General: Alert and oriented, Well nourished, No acute distress. Eye: Pupils are equal, round and reactive to light, Intact accommodation, Extraocular movements are intact, Normal conjunctiva, Vision unchanged. HENT: Normocephalic, Atraumatic, Tympanic membranes are clear, Normal hearing, Oral mucosa is moist, No pharyngeal erythema, Ear canals patent. Respiratory: Lungs CTA bilaterally, No wheeze, Respirations are non-labored. Cardiovascular: Regular rate, Regular rhythm, S1 auscultated, S2 auscultated, No murmur, Good pulses equal in all extremities, Normal peripheral perfusion, No edema. Gastrointestinal: Soft, Non-tender, Non-distended, Normal bowel sounds, No organomegaly. Musculoskeletal: Normal range of motion, Normal strength, No tenderness, No swelling, No deformity, Normal gait. Integumentary: Warm, Dry, [place], Intact. Neurologic: Alert, Oriented, Normal sensory, Normal motor function, No focal defects, Cranial Nerves II-XII are grossly intact, Normal deep tendon reflexes. Psychiatric: Cooperative, Appropriate mood & affect, Normal judgment. Coding Level of Care Code Est Pt Level 4 (80781) Complex visit Add On G2211 Diagnoses Other iron deficiency anemia D50.8 Iron deficiency anemia type: other iron deficiency Chronic gastritis without bleeding, unspecified gastritis type K29.50 Gastritis type: unspecified gastritis Chronicity: chronic Gastritis bleeding: without bleeding Left hip pain M25.552 Essential hypertension I10 Hyperlipidemia, unspecified hyperlipidemia type E78.5 Hyperlipidemia type: unspecified Hypothyroidism, unspecified type E03.9 Hypothyroidism type: unspecified Hypoglycemia E16.2 Muscle spasm M62.838 Assessment & Plan Assessment & Plan (1) Iron (Fe) deficiency anemia: Comment: - The patient's iron level is 23, saturation is 6%, and hemoglobin is 10.9. - A colonoscopy was negative for a source of bleeding. - Will contact the infusion center again to facilitate scheduling of a previously ordered iron infusion. (Failed oral iron therapy) - The patient is encouraged to continue an iron-rich diet. Code(s): D50.9 - Iron deficiency anemia, unspecified Category: Medical Qualifiers: Iron deficiency anemia type: other iron deficiency Qualified Code(s): D50.8 - Other iron deficiency anemias (2) Gastritis: Comment: - Confirmed by upper endoscopy. - The patient is taking omeprazole 20mg, which is effective. - Advised to continue medication and avoid triggers such as tomatoes and NSAIDs like diclofenac. - Tylenol is recommended for pain management. Code(s): K29.70 - Gastritis, unspecified, without bleeding Category: Medical Qualifiers: Gastritis type: unspecified gastritis Chronicity: chronic Gastritis bleeding: without bleeding Qualified Code(s): K29.50 - Unspecified chronic ga stritis without bleeding (3) Left hip pain: Comment: - Diagnosed after negative x-rays. - The patient has an upcoming appointment with orthopedics on September 07. - A physical therapy referral from 06/03 is pending; advised the patient to call central scheduling to make an appointment. - Tylenol is recommended for pain. Code(s): M25.552 - Pain in left hip Category: Medical (4) Essential hypertension: Comment: - Well-controlled on amlodipine, hydrochlorothiazide, and irbesartan. - Blood pressure was good during the visit. - Continue current regimen. Code(s): I10 - Essential (primary) hypertension Category: Medical (5) Hyperlipidemia: Comment: - Managed with atorvastatin 20 mg. Cholesterol levels are good. - Continue current medication. Code(s): E78.5 - Hyperlipidemia, unspecified Category: Medical Qualifiers: Hyperlipidemia type: unspecified Qualified Code(s): E78.5 - Hyperlipidemia, unspecified (6) Hypothyroidism: Comment: - Managed with levothyroxine 25 mcg. - Continue current medication. Code(s): E03.9 - Hypothyroidism, unspecified Category: Medical Qualifiers: Hypothyroidism type: unspecified Qualified Code(s): E03.9 - Hypothyroidism, unspecified (7) Hypoglycemia: Comment: - The patient reports episodes of low blood sugar without taking diabetes medication. - Continue to monitor blood glucose at home. Code(s): E16.2 - Hypoglycemia, unspecified Category: Medical (8) Muscle spasm: Comment: - The patient is taking cyclobenzaprine 10 mg at night, which is helpful. - A refill will be sent. Code(s): M62.838 - Other muscle spasm Category: Medical Plan: Health Maintenance: - Diet: The patient is attempting to eat an iron-rich diet and was advised on dietary triggers for gastritis, such as tomatoes. - Screening: A recent colonoscopy was completed and was negative for a source of bleeding. - Follow-up: An appointment with orthopedics is scheduled for September 07 for hip pain. - Referrals: A referral for physical therapy is pending; the patient was instructed on how to schedule it. - Follow-up care: The patient is scheduled to return to the clinic in 3 months for a follow-up visit, with an annual physical exam planned for December. Patient was informed and verbally consented to the use of an ambient scribe for clinic note documentation during this visit. Plan I discussed the patient's persistent iron deficiency anemia, noting the low iron, saturation, and hemoglobin levels. I explained that while the recent colonoscopy was reassuringly negative for a bleeding source, the iron infusion I previously ordered is crucial. I acknowledged the scheduling difficulties and likely insurance hurdles, informing the patient that I would personally re- contact the infusion center to facilitate the appointment. We reviewed the finding of erosive gastritis from the upper endoscopy, and I reinforced the importance of continuing omeprazole and strictly avoiding NSAIDs like diclofenac, recommending Tylenol for pain control instead. For the patient's hip pain, diagnosed as arthritis, I confirmed the upcoming appointment with orthopedics and advised on how to schedule the pending physical therapy referral by contacting central scheduling. We confirmed that blood pressure and cholesterol are well-controlled on the current regimen, and I will be sending a refill for cyclobenzaprine. I advised a follow-up visit in three months to review progress, with a full physical exam planned for December. Medications: Refilled hydrochlorothiazide 25 mg PO DAILY 90 tabs 1RF Patient Instructions: - We will contact the infusion center again to get your iron infusion scheduled. Please be ready to take their call. - Continue taking your daily medications for blood pressure, cholesterol, and thyroid as prescribed. - For your hip pain, take Tylenol as needed. Do not use anti-inflammatory pain relievers like Diclofenac or Ibuprofen, as they can harm your stomach. - Continue taking Omeprazole (Prilosec) for your stomach protection. Try to avoid foods that might irritate your stomach, such as tomatoes. - We have sent a refill for your cyclobenzaprine to your pharmacy. - Keep your appointment with the orthopedic doctor on September 07. - To schedule your physical therapy, call the main hospital number and ask to speak with 'Central Scheduling'. - Continue to check your blood sugar levels at home as you have been doing. - Please schedule a follow-up appointment in our office in three months. - If you have any urgent issues before then, please call our office.
--- OUTSIDE RECORDS SUMMARY | 2025-07-17 10:31 | XMS_ITS | Clinical Summary ---
Author Organization [employer] Address [address] [place] [address] Care Team Providers Care Head Of Loss Prevention Name Role Phone Unavailable Primary Care Provider Unavailabl e Encounters Date Type Department Care Team Description 06/04/2025 12:10 PM EDT Immunization [facility] [address] [place] [address] Giselle Posadas RN Encounter for vaccination; Encounter for immunization from Last 3 Months Immunizations Immunization Administration Dates Next Due Influenza, High Dose Seasonal, Preservative Free 06/04/2025 Influenza, seasonal, injectable, preservative fr ee 05/14/2024 Pfizer Covid-19 Vaccine 12+ 06/04/2025, Social History Tobacco Use Types Packs/Day Years [...] (2 of 2) 09/18/2018 07/24/2018 COVID-19 Vaccine ( season) 2025 06/04/2025, 05/14/2024, 12/08/2022, Additional history exists RSV Patients and Patients Aged 60 years or older (1 - 1-dose 75+ series) 2031 Influenza Vaccine Completed 06/04/2025, , 05/09/2018 HIB Vaccines Aged Out No longer [...] patient's age to complete this topic Insurance [facility] STANDARD
--- OUTSIDE RECORDS SUMMARY | 2025-07-17 10:31 | XMS_ITS | Patient Health Record ---
Author Organization [facility] Address [address] [place] [address] Care Team Providers Care Tank Farm Attendant Name Role Phone SUKHWINDER, JOSE Primary Care Provider Mann Rowe [phone] Allergies Allergen (clinical drug ingredient) Drug/Non Drug Allergy documented on EMR Reaction Allergy Type Onset Date Status aspirin Aspirin stomach upset Drug Allergy Act oli Results Component Value Reference Range Flag Notes Ferritin Reviewed date:05/24/2025 12:30:31 AM Interpretation: Performing Lab:[facility], [address] [place] [phone] Notes/Report: Ferritin 10 10-250 ng/mL N Vitamin B12 and Folate Reviewed date:05/24/2025 12:30:09 AM Interpretation: Performing Lab:[facility], [address] [place] [phone] Notes/Report: Vitamin B12 253 200-900 pg/mL N NORMAL 200-900 PG/ML INDETERMINATE 160-199 PG/ML DEFICIENT < 160 PG/ML Folate 9.5 > or = 4.0 ng/mL Reference Values: > or = 4.0 ng/mL < 4.0 ng/mL suggests folate deficiency Methotrexate, aminopterin and folinic acid (leucovorin) are chemotherapeutic agents whose molecular structures are similar to folate; therefore, the Completion Supervisor folate assay cannot be used for patients using these drugs. Complete Blood Count Auto Di ff Reviewed date:05/24/2025 12:31:00 AM Interpretation: Performing Lab:[facility], [address] [place] [phone] Notes/Report: White Blood Count 6.8 4.8-10.8 X10*3/uL N Red Blood Count 4.49 4.20-5.50 X10*6/uL N Hemoglobin 10.9 12.0-16.0 g/dl L Hematocrit 34.1 37.0-47.0 % L Mean Corpuscular Volume 75.9 80.0-98.0 fL L Mean Corpuscular Hemoglobin 24.3 27.0-33.0 pg L Mean Corpuscular HGB Conc 32.0 31.0-35.0 g/dl N Red Cell Distribution Width 17.4 11.0-16.0 % H Platelet Count 271 160-400 X10*3/uL N Mean Platelet Volume 11.0 9.4-12.3 fL N Neutrophils Percent Auto 49.8 45-73 % N Imm Gran Pct Auto 0.4 0.0-0.4 % N Lymphocytes Percent Auto 40.1 20-40 % H Monocytes Percent Auto 7.1 2-11 % N Eosinophils Percent Auto 2.2 0-4 % N Basophils Percent Auto 0.4 0-2 % N NRBC Pct Auto 0.0 0.0-0.2 /100WBC N Neutrophils Absolute Auto 3.4 2.0-8.3 x10*3/uL N Imm Gran Abs Auto 0.03 0.00-0.03 X10*3/uL N Lymphocytes Absolute Auto 2.7 1.2-4.9 X10*3/uL N Monocytes Absolute Auto 0.5 0.1-1.2 X10*3/uL N Eosinophils Absolute Auto 0.2 0.0-0.4 X10*3/uL N Basophils Absolute Auto 0.0 0.0-0.2 X10*3/uL N NRBC Abs Auto 0.000 0.0-0.012 X10*3/uL N IRON PROFILE Reviewed date:05/24/2025 12:30:46 AM Interpretation: Performing Lab:[facility], [address] [place] [phone] Notes/Report: Iron 23 30-160 mcg/dL L Total Iron Binding Capacity 361 228-428 mcg/dL N Percent Iron Saturation 6 15-50 % L Unsaturated Iron Binding 338 Pathology (Not yet reviewed by provider) Interpretation: Performing Lab:[facility], [address] [place] [phone] Notes/Report: Reason For Referral No Information Medications Medication SIG (Take, Route, Frequency, Duration) Notes Start Date End Date Status MiraLax (colon prep) 17 GM/SCOOP Powder 1 238 GM bottle mixed with Gatorade or Crystal Light orally begin at 5:00 p.m. the day before the procedure; Duration: 1 days 05/26/2025 Active amLODIPine Besylate 2.5 MG Tablet 1 tablet Orally Once a day Active Prilosec 20 MG Capsule Delay ed Release 1 Orally Once a day every morning; Duration: 90 days 06/11/2025 Active Dulcolax (colon prep) 5 MG Tablet Delayed Release take 2 at 3:00 p.m and 2 at 7:00p.m. the day before the colonoscopy Orally two tablets twice a day for one day; Duration: 1 days 05/26/2025 Active Naproxen 500 MG Tablet Delay ed Release 1 tablet as needed Orally every 12 hrs Active Vitamin D 125 MCG Capsule 1 capsule Oral ly Once a day Active Loratadine 10 MG Capsule 1 capsule Orall y Once a day Active Levothyroxine Sodium 25 MCG Tablet 1 tablet in the morning on an empty stomach Orally Once a day Active hydroCHLOROthiazide 25 MG Tablet 1 tablet in the morning Orally Once a day Active Irbesartan 300 MG Tablet 1 tablet Orally Once a day Active Atorvastatin Calcium 20 MG Tablet 1 tablet Orally Once a day Active Social History Social History Additional Details Category Social Info Options Details Miscellaneous: Marital status: single 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: Nonsmoker; no sig alcohol Problems Problem Type SNOMED Code ICD Code Onset Dates Problem Status W/U Status Risk Notes Problem Colon cancer screening (003445422) Colon cancer screening (Z12.11) Active confirmed Problem Dysphagia (86565958) Dysphagia (R13.10) Active confirmed Problem Iron deficiency anemia (79955448) Iron deficiency anemia (D50.9) Active confirmed Problem Preprocedural examination (425570059401249) Preprocedural examination (Z01.818) Active confirmed Problem Anemia (797218945) Anemia (D64.9) Active confirmed Vital Signs Temperature 96.2 degrees Fahrenheit 05/05/2025 Blood pressure diastolic 01 mm Hg 05/05/2025 Height 63 in 05/05/2025 Blood pressure systolic 001 mm Hg 05/05/2025 Weight 194.0 lbs 05/05/2025 BMI 34.36 kg/m2 05/05/2025 Procedures Procedure Date Ordered Date Performed Result Body Sit e UPPER GI ENDOSCOPY 05/05/2025 N/A COLONOSCOPY 05/05/2025 N/A Encounters Encounter Location Date Provider Diagnosis [facility] Outpatient [address] [place] [id number] 06/11/2025 Mann Villafana [facility] [address] [place] [phone] 05/05/2025 Mann Villafana Colon cancer screeni ng Z12.11 ; Anemia D64.9 ; Preprocedural examination Z01.818 and Dysphagia R13.10 [facility] [address] [place] [phone] 06/11/2025 Mann Villafana Iron deficiency anem ia D50.9 [facility] [address] [place] [phone] 06/15/2025 Mann Villafana [facility] [address] [place] [phone] 05/05/2025 Mann Villafana [facility] [address] [place] [phone] 05/05/2025 Mann Villafana [facility] [address] [place] [phone] 05/24/2025 Mann Villafana [facility] [address] [place] [phone] 06/15/2025 Mann Villafana [facility] [address] [place] [phone] 06/16/2025 Mann Villafana Assessments Encounter Date Diagnosis (ICD [...] to keep you advised of her progress. 06/11/2025 Iron deficiency anemia (ICD-10 - D50.9) 05/05/2025 Preprocedural examination (ICD-10 - Z01.818) Overall, [...] IBC (FE) 05/05/2025 CBC w DIFF 05/05/2025 Pathology 06/11/2025 Next Appt Details Provider Name:Mann Villafana , 10/27/2025 09:10:00 AM, [address] [place] [address], [address], [place], [address], Insurance Providers Payer Name Payer Address Payer Phone Subscriber Number Group Number Insured Name Patient Relationship to Insured Coverage Start Date Coverage End Date [employer] [facility] [address] [place] [phone] [id number] MATA ELVIRA Self - patient is the insured Medical (General) History Medical History History ICD Code Arthritis HTN Gastirc ulcers---describes u pper endos--most recent one was in [address] Kwabena Hines and is described as negative. She did have duodenal biopsies but I do not have those results. IBS Denies HI,DM,CVA,Lung disease,renal dise ase Hypothyroidism Negative colonoscopy in [address] [place] [address] Kwabena Hines. She had previous negative colonoscopies as well. Her colonoscopy report from 2014 describes no abnormalities and colon biopsies were done to rule out underlying microscopic colitis, but I do not have the results of that pathology.
== END 2025-07-17 10:21 | disposition home or self-care (01) ==
LOC: HO.HMCHD 09:49
PROVIDERS: PCP Student in an Organized Health Care Education/Training Program; Visit Provider Student in an Organized Health Care Education/Training Program
DX: D50.8 Other iron deficiency anemias (principal); K29.50 Unspecified chronic gastritis without bleeding; M25.552 Pain in left hip; I10 Essential (primary) hypertension; E78.5 Hyperlipidemia, unspecified; E03.9 Hypothyroidism, unspecified; E16.2 Hypoglycemia, unspecified; M62.838 Other muscle spasm

== ENCOUNTER → 2025-07-17 09:48 | Outpatient (BNVA) | payer OTHER, SELFPAY | PROVIDERS: PCP Student in an Organized Health Care Education/Training Program; Visit Provider Student in an Organized Health Care Education/Training Program | DX: D50.8 Other iron deficiency anemias (principal); K29.70 Gastritis, unspecified, without bleeding; M25.552 Pain in left hip; I10 Essential (primary) hypertension; E78.5 Hyperlipidemia, unspecified; E03.9 Hypothyroidism, unspecified; E16.2 Hypoglycemia, unspecified; M62.838 Other muscle spasm | CPT/HCPCS: 99212 ==